=== PATIENT | female | born 1960 | race Caucasian/White ===

== ENCOUNTER 2021-01-05 08:09 | Outpatient (REF) | payer OTHER, SELFPAY ==
--- NOTE | ~2021-01-05 | MR_ITS ---
MRI CERVICAL, THORACIC, AND LUMBAR SPINE WITHOUT CONTRAST CLINICAL INFORMATION: Inflammatory spondylopathy. Radiculopathy. COMPARISON: Cervical spine MRI 07/07/2018. Lumbar spine radiographs 08/10/2018. TECHNIQUE: Multiplanar multisequence MR imaging of the cervical, thoracic, and lumbar spine obtained without contrast FINDINGS: CERVICAL SPINE MRI: Straightening the cervical lordosis. Vertebral body heights are maintained. There is moderate disc volume loss at C4-C5, C5-C6, and C6-C7. Modic type I endplate signal changes at C5-C6 and C6-C7. There is no additional bone marrow edema. There are no acute fractures. The craniocervical junction is unremarkable. Cervical arterial flow voids are maintained. There are no significant soft tissue findings. Intracranial compartment obscured by a saturation band. C2-C3: Slight annular disc bulge. Advanced left facet arthropathy and uncovertebral joint spurring result in mild left-sided foraminal encroachment. No right foraminal stenosis. C3-C4: Disc osteophyte and ligamentum flavum thickening result in mild to moderate central canal stenosis and flattening of the cord. Uncovertebral joint hypertrophy and hypertrophic facet arthropathy result in severe left-sided foraminal stenosis. Findings unchanged. C4-C5: Central disc protrusion and ligamentum flavum thickening result in worsening severe central canal stenosis and mass effect on the cervical cord. No definite cord signal changes. C5-C6: A broad-based right paracentral disc protrusion and ligamentum flavum thickening result in progressive severe central canal stenosis. Uncovertebral joint spurring and facet arthropathy result in similar severe bilateral foraminal stenosis. C6-C7: A broad-based disc protrusion and ligamentum flavum thickening result in worsening severe central canal stenosis. Uncovertebral joint spurring and facet arthropathy result in similar severe left greater than right foraminal stenosis. C7-T1: Slight annular disc bulge without central canal stenosis. Mild foraminal encroachment bilaterally. THORACIC SPINE MRI: Midthoracic kyphosis. Vertebral body heights are maintained. Disc volumes are preserved. No bone marrow edema. No acute fractures. There are multilevel endplate osteophytes and there is multilevel hypertrophic facet arthropathy. No definite cord signal changes with assessment limited by artifact. At T1-T2, a stable central disc protrusion flattens the ventral cord resulting in mild to moderate central canal stenosis. No foraminal stenosis. At T3-T4, T4-T5, and T5-T6 there are left paracentral disc protrusions that mildly indent the left ventral thecal sac without resulting in significant central canal stenosis. At T6-T7, a central disc protrusion and dorsal epidural lipomatosis result in moderate central canal stenosis and flattening of the thoracic cord. At T7-T8 and T8-T9 there are shallow paracentral disc protrusions that along with epidural lipomatosis result in mild narrowing of the central canal and flattening of the ventral cord. LUMBAR SPINE MRI: There are 5 nonrib-bearing lumbar-type vertebral bodies. There is grade 1 degenerative anterolisthesis of L4 on L5. Lumbar alignment is otherwise maintained. There is no bone marrow edema. There are no acute fractures. Vertebral body heights are maintained. There is moderate disc volume loss at L5-S1 and there is mild disc volume loss at L4-L5. Conus terminates at the L1 level. There is bilateral perinephric stranding. L1-L2: Small annular disc bulge and moderate bilateral facet arthropathy and ligamentum flavum thickening. Mild narrowing of the central canal and mild bilateral foraminal encroachment. L2-L3: Diffuse annular disc bulge and severe bilateral facet arthropathy and ligamentum flavum thickening. Mild central canal stenosis and mild bilateral foraminal encroachment. L3-L4: Diffuse annular disc bulge and severe bilateral facet arthropathy and ligamentum flavum thickening. Findings in concert result in mild to moderate central canal stenosis and mild right-sided foraminal encroachment. L4-L5: There is grade 1 degenerative anterolisthesis. There is severe bilateral facet arthropathy and ligamentum flavum thickening. These findings in concert result in severe central canal stenosis and moderate right-sided foraminal stenosis with mild mass effect on the exiting right L4 nerve root. L5-S1: Diffuse disc osteophyte complex with a superimposed broad-based right paracentral disc protrusion that compresses the traversing right S1 nerve root within the right subarticular zone. Severe bilateral facet arthropathy. Severe left and mild to moderate right foraminal stenosis. MR/MR thoracic spine wo con IMPRESSION: - Progressive advanced spondylitic changes throughout the cervical spine with spondylitic changes resulting in worsening now severe central canal stenosis at C4-C5, C5-C6, and C6-C7 with worsening mass effect on the cervical spinal cord at all of these levels. No definite cord signal changes however assessment is limited by artifact. Severe multilevel foraminal stenosis unchanged as discussed above. Modic type I endplate signal changes at C5-C6 and C6-C7. - At T1-T2, a central disc protrusion flattens the ventral cord resulting in mild to moderate central canal stenosis. At T6-T7, a central disc protrusion and dorsal epidural lipomatosis result in moderate central canal stenosis and flattening of the thoracic cord. At T7-T8 and T8-T9 there are shallow paracentral disc protrusions that along with epidural lipomatosis result in mild narrowing of the central canal and flattening of the ventral cord. There is a midthoracic kyphosis. - At L4-L5, grade 1 degenerative anterolisthesis and advanced spondylitic changes result in severe central canal stenosis and moderate right-sided foraminal stenosis with mild mass effect on the exiting right L4 nerve root. - At L5-S1, a right paracentral disc protrusion compresses the traversing right S1 nerve root within the right subarticular zone and multifactorial degenerative changes result in severe left foraminal stenosis with compression of the exiting left L5 nerve root.
== END 2021-01-05 08:10 | disposition home or self-care (01) ==
LOC: HO.MRI 08:09
PROVIDERS: PCP Internal Medicine; Visit Provider Physician Assistant
DX: M54.12 Radiculopathy, cervical region (principal); M46.92 Unspecified inflammatory spondylopathy, cervical region
CPT/HCPCS: 72141; 72146; 72148

== ENCOUNTER 2021-06-06 09:06 | Outpatient (REF) | payer OTHER, SELFPAY ==
[2021-06-07 08:51] LABS: BV Int Neg Control Negative (Negative); BV Int Pos Control Positive (Positive)
[2021-06-09 06:47] LABS: HPV mRNA E6/E7 rflx Not Detected (Not Detected)
== END 2021-06-06 09:07 | disposition home or self-care (01) ==
LOC: HO.LAB 09:06
PROVIDERS: PCP Internal Medicine; Visit Provider Advanced Practice Midwife
DX: Z01.411 Encounter for gynecological examination (general) (routine) with abnormal findings (principal); Z11.51 Encounter for screening for human papillomavirus (HPV); Z11.3 Encounter for screening for infections with a predominantly sexual mode of transmission; N89.8 Other specified noninflammatory disorders of vagina; E66.01 Morbid (severe) obesity due to excess calories; Z68.41 Body mass index [BMI] 40.0-44.9, adult; L85.8 Other specified epidermal thickening; L98.9 Disorder of the skin and subcutaneous tissue, unspecified; Z80.3 Family history of malignant neoplasm of breast
CPT/HCPCS: 87480; 87510; 87624; 87660; 88142

== ENCOUNTER 2021-06-18 11:52 | Outpatient (REF) | payer OTHER, SELFPAY ==
--- NOTE | ~2021-06-18 | MM_ITS ---
EXAMINATION: MM SCREENING DIGITAL BREAST TOMOSYNTHESIS, BILATERAL CLINICAL INFORMATION: Screening. Asymptomatic. The lifetime risk of breast cancer based on the Tyrer-Cuzick Model is 9%. COMPARISON: Mammography: 12/16/2019, 12/10/2018, 02/27/2017 TECHNIQUE: Digital breast tomosynthesis is performed in both the craniocaudal and mediolateral oblique views along with computer-aided detection (CAD). Synthesized 2D images are generated from the tomosynthesis. Additional bilateral CC views are provided. FINDINGS: The breasts are almost entirely fatty (ACR BI-RADS breast composition Category a). There are no significant masses, abnormal calcifications, or other abnormalities. Background stromal densities are stable. No developing density. The axilla and skin contours are unremarkable. MM/MM tomosynthesis screening BI IMPRESSION: No mammographic evidence of malignancy. ASSESSMENT: BI-RADS 1: Negative RECOMMENDATION: Routine annual mammography screening. This patient's information was entered into a reminder system with a target due date for their next mammogram.
== END 2021-06-18 11:53 | disposition home or self-care (01) ==
LOC: HO.MAMMO 11:52
PROVIDERS: Visit Provider Internal Medicine
DX: Z12.31 Encounter for screening mammogram for malignant neoplasm of breast (principal)
CPT/HCPCS: 77063; 77067

== ENCOUNTER 2021-06-20 09:51 | Outpatient (REF) | payer OTHER, SELFPAY | END 2021-06-20 09:52 | disposition home or self-care (01) | LOC: HO.LAB 09:51 | PROVIDERS: Visit Provider Advanced Practice Midwife | DX: L85.8 Other specified epidermal thickening (principal); N90.89 Other specified noninflammatory disorders of vulva and perineum; L72.3 Sebaceous cyst | CPT/HCPCS: 88305; 88312 ==

== ENCOUNTER → 2021-06-28 11:16 | Outpatient (BNVA) | payer OTHER, SELFPAY | PROVIDERS: Visit Provider Advanced Practice Midwife ==

== ENCOUNTER 2021-08-23 15:01 | Outpatient (REF) | payer OTHER, SELFPAY ==
--- NOTE | ~2021-08-23 | US_ITS ---
EXAMINATION: US PELVIC AND TRANSVAGINALS CLINICAL INFORMATION: Pelvic and perineal pain. COMPARISON: None TECHNIQUE: Ultrasound of the pelvis is performed using both transabdominal and transvaginal transducers along with Doppler. Transvaginal imaging is performed due to inadequate visualization transabdominally. FINDINGS: Technically limited due to body habitus. Uterus: The uterus is anteverted, anteflexed and measures 5.8 cm in length, 3.1 cm in AP, and 4.4 cm in transverse dimension. The double wall endometrial thickness is 0.4 mm. The uterus is smooth in contour and has normal myometrial echogenicity. No visible fibroid. Adnexa: Both ovaries are visualized. There is normal color-flow to the adnexa. There is no ovarian torsion. There is no pelvic ascites or fluid collection. Right ovary measures 1.6 x 1.1 x 1.1 and volume 1.01 mL. Previously it measured 2.2 x 1.2 x 1.9 cm. Left ovary measures 1.5 x 1.0 x 1.0 and volume 0.8 mL. There is an anechoic cyst measuring 0.79 x 0.67 x 0.8 cm. US/US pelvic and transvaginal IMPRESSION: Unremarkable uterus. Anechoic cyst left ovary.
== END 2021-08-23 15:02 | disposition home or self-care (01) ==
LOC: HO.US 15:01
PROVIDERS: Visit Provider Advanced Practice Midwife
DX: R10.2 Pelvic and perineal pain (principal)
CPT/HCPCS: 76830; 76856

== ENCOUNTER → 2021-09-11 12:06 | Outpatient (BNVA) | payer OTHER, SELFPAY | PROVIDERS: Visit Provider Advanced Practice Midwife ==

== ENCOUNTER → 2022-04-09 08:58 | Outpatient (REF) | payer OTHER, SELFPAY | LOC: HO.SL 08:58 | PROVIDERS: PCP Internal Medicine; Visit Provider Internal Medicine | DX: G47.33 Obstructive sleep apnea (adult) (pediatric) (principal); R40.0 Somnolence | CPT/HCPCS: 95806 ==

== ENCOUNTER 2022-06-07 11:15 | Outpatient (REF) | payer OTHER, SELFPAY ==
[2022-06-08 14:53] LABS: BV Int Neg Control Negative (Negative); BV Int Pos Control Positive (Positive)
[2022-06-10 21:12] LABS: HPV mRNA E6/E7 rflx Not Detected (Not Detected)
== END 2022-06-07 11:16 | disposition home or self-care (01) ==
LOC: HO.LAB 11:15
PROVIDERS: Visit Provider Advanced Practice Midwife
DX: Z01.419 Encounter for gynecological examination (general) (routine) without abnormal findings (principal); R10.2 Pelvic and perineal pain; Z11.51 Encounter for screening for human papillomavirus (HPV)
CPT/HCPCS: 87480; 87510; 87624; 87660; 88142

== ENCOUNTER 2022-07-10 11:29 | Outpatient (REF) | payer OTHER, SELFPAY ==
--- NOTE | ~2022-07-10 | MM_ITS ---
EXAMINATION: MM SCREENING DIGITAL BREAST TOMOSYNTHESIS, BILATERAL CLINICAL INFORMATION: Screening. Asymptomatic. The lifetime risk of breast cancer based on the Tyrer-Cuzick Model is 12%. COMPARISON: Mammography: 06/18/2021, 12/16/2019, 12/10/2018 TECHNIQUE: Digital breast tomosynthesis is performed in both the craniocaudal and mediolateral oblique views along with computer-aided detection (CAD). Synthesized 2D images are generated from the tomosynthesis. Additional right MLO view is provided. FINDINGS: The breasts are almost entirely fatty (ACR BI-RADS breast composition Category a). There are no significant masses, abnormal calcifications, or other abnormalities. Background stromal markings are normal. No developing density or architectural abnormality. The axilla are unremarkable. No significant changes. MM/MM tomosynthesis screening BI IMPRESSION: No mammographic evidence of malignancy. ASSESSMENT: BI-RADS 1: Negative RECOMMENDATION: Routine annual mammography screening. This patient's information was entered into a reminder system with a target due date for their next mammogram.
== END 2022-07-10 11:30 | disposition home or self-care (01) ==
LOC: HO.MAMMO 11:29
PROVIDERS: Visit Provider Internal Medicine
DX: Z12.31 Encounter for screening mammogram for malignant neoplasm of breast (principal)
CPT/HCPCS: 77063; 77067

== ENCOUNTER 2022-07-26 11:00 | Outpatient (REF) | payer OTHER, SELFPAY ==
--- NOTE | ~2022-07-26 | US_ITS ---
EXAMINATION: US PELVIS CLINICAL INFORMATION: Pain COMPARISON: Previous pelvic ultrasound, most recent July 2021 TECHNIQUE: Ultrasound of the pelvis is performed using both transabdominal and transvaginal transducers along with Doppler. Transvaginal imaging is performed due to inadequate visualization transabdominally. FINDINGS: The uterus is anteverted and measures 4.4 x 2.6 x 3.5 cm. No focal uterine lesion is seen. Endometrial thickness is normal measuring 0.4 cm. There is trace fluid seen in the endometrial cavity. The right ovary is normal-appearing and measures 1.5 x 1.4 x 1.2 cm. Left ovary measures 2.1 x 1.5 x 1.2 cm. There is a 0.9 x 0.7 x 0.9 cm simple left ovarian cyst. This is similar to previous exams. There is no fluid in the pelvis. US/US pelvic and transvaginal IMPRESSION: Normal-appearing uterus and right ovary. 9 x 7 x 9 mm simple left ovarian cyst not appreciably changed from previous exam.
== END 2022-07-26 11:01 | disposition home or self-care (01) ==
LOC: HO.US 11:00
PROVIDERS: Visit Provider Advanced Practice Midwife
DX: R10.2 Pelvic and perineal pain (principal)
CPT/HCPCS: 76830; 76856

== ENCOUNTER → 2022-08-07 09:39 | Outpatient (BNVA) | payer OTHER, SELFPAY | PROVIDERS: PCP Internal Medicine; Visit Provider Advanced Practice Midwife | DX: Z71.2 Person consulting for explanation of examination or test findings (principal); N83.292 Other ovarian cyst, left side | CPT/HCPCS: 99212; Q3014 ==

== ENCOUNTER → 2022-09-09 10:08 | Outpatient (BNVA) | payer OTHER, SELFPAY | PROVIDERS: PCP Internal Medicine; Visit Provider Internal Medicine | DX: J45.909 Unspecified asthma, uncomplicated (principal); G47.33 Obstructive sleep apnea (adult) (pediatric); E66.01 Morbid (severe) obesity due to excess calories; Z68.41 Body mass index [BMI] 40.0-44.9, adult | CPT/HCPCS: 99202 ==

== ENCOUNTER 2022-09-13 14:03 | Outpatient (REF) | payer OTHER, SELFPAY ==
--- NOTE | 2022-09-13 15:27 | PFT_ITS ---
FLOWS: FEV1 65% of predicted at 1.53 L. FVC 56% of predicted at 1.72 L. FEV1 to FVC ratio of 0.89. No bronchodilator response except in small to medium airways. LUNG VOLUMES: Total lung capacity 67% of predicted at 3.20 L. Residual volume 69% of predicted at 1.32 L. Slow vital capacity 65% of predicted at 1.88 L. Expiratory reserve volume 6% of predicted at 0.05 L. Diffusion capacity is mildly decreased, diffusion capacity corrects to normal after adjustment for alveolar ventilation. IMPRESSION: Moderate restrictive ventilatory defect with positive bronchodilator response. Decreased expiratory reserve volume suggests extrathoracic restriction likely secondary to abdominal obesity. Tim Aponte MD AP/MODL / [id number]
== END 2022-09-13 14:04 | disposition home or self-care (01) ==
LOC: HO.RESP 14:03
PROVIDERS: Visit Provider Internal Medicine
DX: E66.01 Morbid (severe) obesity due to excess calories (principal); J45.909 Unspecified asthma, uncomplicated; Z68.41 Body mass index [BMI] 40.0-44.9, adult
CPT/HCPCS: 94060; 94727; 94729

== ENCOUNTER → 2022-10-30 11:13 | Outpatient (BNVA) | payer OTHER, SELFPAY | PROVIDERS: PCP Internal Medicine; Visit Provider Internal Medicine | DX: G47.33 Obstructive sleep apnea (adult) (pediatric) (principal); J45.909 Unspecified asthma, uncomplicated; J98.4 Other disorders of lung; E66.01 Morbid (severe) obesity due to excess calories; Z68.41 Body mass index [BMI] 40.0-44.9, adult | CPT/HCPCS: 99212 ==

== ENCOUNTER → 2023-01-01 11:21 | Outpatient (BNVA) | payer OTHER, SELFPAY | PROVIDERS: PCP Internal Medicine; Visit Provider Internal Medicine | DX: G47.33 Obstructive sleep apnea (adult) (pediatric) (principal); J98.4 Other disorders of lung; E66.01 Morbid (severe) obesity due to excess calories; Z68.41 Body mass index [BMI] 40.0-44.9, adult | CPT/HCPCS: 99212 ==

== ENCOUNTER → 2023-02-26 11:01 | Outpatient (BNVA) | payer OTHER, SELFPAY | PROVIDERS: PCP Internal Medicine; Visit Provider Internal Medicine ==

== ENCOUNTER 2023-08-21 14:37 | Emergency (ER) | payer MEDICARE, MEDICAID, SELFPAY ==
[2023-08-21 15:48] VITALS: BP 166/88; PULSE 102; RESP 18; TEMP 37.1; O2SAT 96; BMI 45.7
--- NOTE | 2023-08-21 15:51 | ECG_ITS ---
Test Reason : headache,nausea,vomitimg Blood Pressure : / mmHG Vent. Rate : 095 BPM Atrial Rate : 095 BPM P-R Int : 140 ms QRS Dur : 080 ms QT Int : 356 ms P-R-T Axes : 040 -08 047 degrees QTc Int : 447 ms Normal sinus rhythm Minimal voltage criteria for LVH, may be normal variant ( R in aVL ) Possible Lateral infarct , age undetermined Abnormal ECG When compared with ECG of 23-AUG-2019 13:24, Borderline criteria for Lateral infarct are now Present Referred By: Gama Hinton Electronically Signed By:PAM CHING
--- NOTE | 2023-08-21 15:52 | ED.GENADULT ---
HPI - General Adult General Chief complaint: Headache Stated complaint: headache/ elevated blood pressure Time Seen by Provider: 08/21/23 19:44 Source: patient, family, RN notes reviewed and old records reviewed Mode of arrival: ambulatory Limitations: no limitations History of Present Illness HPI narrative: 63-year-old female with past medical history significant for asthma, hypertension, obesity, migraine headaches presents for evaluation of headache and body aches. Patient woke up this morning with her symptoms. She states that she has had some nausea and vomiting as well. Has not had any tactile fevers. She reports that she has a history of migraines and took some Tylenol without any improvement in her symptoms Her brother apparently tested positive for COVID-19 recently who lives with her She states ?my blood pressure was really high which got me scared. ? Related Data Previous Rx's Medication Instructions Recorded lorazepam 0.5 mg tablet (Ativan) 0.5 mg PO BEDTIME PRN anxiety 30 01/15/22 days #14 tabs CPAP #1 ea 07/22/22 albuterol sulfate 90 mcg/actuation 1 inh inhalation QID PRN shortness 07/22/22 aerosol inhaler of breath or wheezing 30 days #6.7 grams docusate sodium 100 mg capsule 100 mg PO DAILY 90 days #90 caps 07/22/22 (Colace) cholecalciferol (vitamin D3) 25 25 mcg PO DAILY 90 days #90 caps 10/12/22 mcg (1,000 unit) capsule amlodipine 5 mg tablet 5 mg PO DAILY 90 days #90 tabs 04/13/23 ikcfobbxej-jnervmozqelyv-paujlnqb 1 tab PO BID PRN pain 30 days #30 04/25/23 50 mg-325 mg-40 mg tablet tabs cyclobenzaprine 10 mg tablet 10 mg PO BEDTIME PRN muscle spasm 04/25/23 90 days #90 tabs nirmatrelvir 300 mg (150 mg See Rx Instructions PO .COMPLEX 08/21/23 x2)-ritonavir 100 mg tablet,dose #30 ea pack (Paxlovid) Allergies Allergy/AdvReac Type Severity Reaction Status Date / Time acetaminophen [From Percocet] Allergy Intermediate HEART RACES Verified 08/21/23 20:35 epinephrine [Epinephrine] Allergy Intermediate CHEST Verified 08/21/23 20:35 PAIN/HEART RACES , palpitations morphine Allergy Intermediate migraine Verified 08/21/23 20:35 oxycodone [Percocet] Allergy Intermediate palpitation Verified 08/21/23 20:35 s aspirin [Aspirin] Allergy Mild STOMACH Verified 08/21/23 20:35 UPSET, abd pain ibuprofen [From Motrin] Allergy Mild STOMACH Verified 08/21/23 20:35 UPSET amoxicillin [Amoxicillin] AdvReac Mild STOMACH Verified 08/21/23 20:35 UPSET Review of Systems Constitutional: Constitutional: Reports body ache(s), Denies chills, Denies fever(s) and Reports headache(s) Eyes: Eyes: Denies blurry vision ENT: Reports headache(s) and Denies sore throat Cardiovascular: Cardiovascular: Denies chest pain and Denies dyspnea Respiratory: Respiratory: Denies cough and Denies dyspnea Gastrointestinal: Gastrointestinal: Denies abdominal pain, Reports nausea and Reports vomiting Musculoskeletal: Musculoskeletal: Reports back pain, Reports arthralgias and Denies joint swelling Integumentary/Breasts: Skin/Breast: Denies rash Neurologic: Reports headache(s) [facility] Past Medical History Medical History Anxiety Asthma Carpal tunnel syndrome Chronic fatigue Daytime sleepiness Elevated blood pressure reading Essential hypertension FH: breast cancer FH: ovarian cancer Fibromyalgia Head injury Headache Hx of abnormal cervical Pap smear Hypovitaminosis D Migraines Mild persistent asthma Morbid obesity with BMI of 40.0-44.9, adult Osteoarthritis Physical exam Restrictive lung disease Surgical History History of abdominoplasty History of adjustable gastric banding History of section History of removal of laparoscopic gastric banding device Family History Family History Father Acute CVA (cerebrovascular accident) Hypertension Mother Cancer of kidney Brother FH: testicular cancer Maternal Grandmother Breast cancer Paternal Grandmother Ovarian cancer Family/Other FH: mental illness Social History Social History Housing: Apartment Alcohol intake: former Patient Tobacco Use Status: Former Tobacco user Tobacco use type: Cigarette Smoked in Last 30 Days: No e-Cigarette/Vaping Use: Never Used Second Hand Smoke Exposure: No Use of substances other than those prescribed or required for medical reasons: No Advance Directives: No service: No Current occupational status: unemployed Sexual orientation: Straight/Heterosexual Gender identity: Female Cognitive needs: No Hearing needs: No Vision needs: Yes Physical Exam ED Vital Signs: Vital Signs - 24 hr 08/21/23 15:48 08/21/23 20:00 Temperature 98.8 F 97.7 F Pulse Rate 102 H 91 Respiratory Rate 18 14 Blood Pressure 166/88 H 156/73 H Pulse Oximetry 96 93 Oxygen Delivery Method Room Air Room Air BMI result Body Mass Index 45.7 Const General: healthy appearing, comfortable, no acute distress, alert and awake Nutritional Appearance: well nourished Orientation/consciousness: patient oriented x3 HENMT Head: Yes normocephalic and Yes atraumatic Eyes Eyelids: Yes eyelids normal Conjunctivae: conjunctivae normal Sclerae: sclerae normal Corneas: corneas normal Pupils: Equal, round and reactive pupils present EOM: EOMs intact bilaterally Neck Neck: Yes full ROM Resp Effort & Inspection: normal respiratory effort, able to speak in complete sentences and not labored Auscultation: clear to auscultation bilaterally Cardio Rate: regular rate Rhythm: regular rhythm GI Inspection: No distended Palpation (GI): Soft to palpation, not firm, nontender, no guarding and not rigid Auscultation: normoactive bowel sounds Skin General skin exam: elasticity normal Neuro General: patient oriented x3 Cranial nerves: Yes Equal, round and reactive pupils present and Yes Bilaterally intact EOM present Cognition (Neuro): normal cognition Extrem Other: Moving all extremities well without any obvious deformities Course Course Course Narrative: RmE: 63 yold female presents to the ED for headache since yesterday without any trauma. patient states vomitting and nuasea also. patient states her brother living with her is positive for covid. SARS, EKG, and labs ordered Medications Administered Discontinued Medications Generic Name Dose Route Start Last Admin Trade Name Freq PRN Reason Stop Dose Admin Acetaminophen/Butalbital/Caffeine 1 tab 08/21/23 19:53 08/21/23 20:50 Butalb/Acetamin/Caff 50/325/40 Tablet PO 08/21/23 19:54 1 tab ONCE ONE Administration Sodium Chloride 1,000 mls @ 999 mls/hr 08/21/23 20:00 08/21/23 20:38 Ns IV 08/21/23 21:00 999 mls/hr .Q1H1M CAROLYN Administration Ketorolac Tromethamine 30 mg 08/21/23 19:53 08/21/23 20:50 Ketorolac Tromethamine 30 Mg/Ml Vial IVPUSH 08/21/23 19:54 30 mg ONCE ONE Administration Ondansetron HCl 4 mg 08/21/23 19:53 08/21/23 20:38 Ondansetron Hcl 4 Mg/2 Ml Vial IVPUSH 08/21/23 19:54 4 mg ONCE ONE Administration Medical Decision Making Medical Decision Making [facility] Narrative: 63-year-old female presents for evaluation of headache, body aches. She tested positive for COVID-19. For labs without any concerning abnormalities. She has no neurologic deficits. No concerning findings to warrant CT imaging of the head. She has a history of headaches and her headache today is likely attributed to her COVID-19 diagnosis. Given the patient's obesity and history of asthma we will cover her with Paxil over the which will be sent to her pharmacy. She was given fluids, Toradol and Fioricet for her headache. Differential Diagnosis Differential Diagnoses: The differential diagnosis associated with the presentation includes COVID-19 Viral syndrome Acute headache Migraine headache Lab Data [facility] Lab Attestation statement: I reviewed the patient's lab results. No leukocytosis or anemia. No electrolyte abnormalities. Patient's glucose is elevated to 176 with no evidence of DKA 08/21/23 16:28 08/21/23 16:28 Labs: Lab Results 08/21/23 Range/Units 16:28 WBC 7.5 (4.8-10.8) X10*3/uL RBC 4.28 (4.20-5.50) X10*6/uL Hgb 12.4 (12.0-16.0) g/dl Hct 37.0 (37.0-47.0) % MCV 86.4 (80.0-98.0) fL MCH 29.0 (27.0-33.0) pg MCHC 33.5 (31.0-35.0) g/dl RDW 13.7 (11.0-16.0) % Plt Count 222 (160-400) X10*3/uL MPV 9.7 (9.4-12.3) fL Immature Gran % (Auto) 0.4 (0.0-0.4) % Neut % (Auto) 89.6 H (45-73) % Lymph % (Auto) 5.0 L (20-40) % [place] % (Auto) 4.6 (2-11) % Eos % (Auto) 0.0 (0-4) % Baso % (Auto) 0.4 (0-2) % Lymph # (Auto) 0.4 L (1.2-4.9) X10*3/uL [place] # (Auto) 0.3 (0.1-1.2) X10*3/uL Eos # (Auto) 0.0 (0.0-0.4) X10*3/uL Baso # (Auto) 0.0 (0.0-0.2) X10*3/uL Abs Immat Gran (auto) 0.03 (0.00-0.03) X10*3/uL Absolute Neuts (auto) 6.7 (2.0-8.3) x10*3/uL Absolute Nucleated RBC 0.000 (0.0-0.012) X10*3/uL Nucleated RBC % (auto) 0.0 (0.0-0.2) /100WBC Sodium 137 (135-145) mmol/L Potassium 3.8 (3.3-5.1) mmol/L Chloride 102 (96-108) mmol/L Carbon Dioxide 23 (22-29) mmol/L Anion Gap 16 (12-20) BUN 10 (9-16) mg/dL Creatinine 0.67 (0.5-1.4) mg/dL Estim Creat Clear Calc 97.1 Estimated GFR > 60 Random Glucose 176 H (60-115) mg/dL Calcium 9.4 (8.4-10.2) mg/dL Total Bilirubin 0.5 (0.0-1.0) mg/dL AST 18 (5-31) U/L ALT 14 (0-31) U/L Alkaline Phosphatase 88 (39-117) U/L Troponin I High Sens 3.1 (<3.5-17.0) ng/L Total Protein 7.9 (6.5-8.0) g/dL Albumin 4.2 (3.5-5.0) g/dL Influenza Type A (PCR) NEGATIVE (Negative) Influenza Type B (PCR) NEGATIVE (Negative) RSV RNA Qual (PCR) NEGATIVE (Negative) SARS-CoV-2 RNA (RT-PCR) POSITIVE A (Negative) Discharge Plan Discharge Clinical Impression: Acute headache, COVID-19 Patient Disposition: Home, Self-Care Instructions: COVID-19 (Coronavirus Disease 2019) (ED) Additional Instructions: You tested positive for COVID-19 This is likely the cause of your worsening headache Take Paxlovid as prescribed Return for new or worsening symptoms Prescriptions: New Paxlovid 300 mg (150 mg x 2)-100 mg tablets,dose pack See Rx Instructions .ROUTE .COMPLEX Qty: 30 0RF Rx Instructions: take TWO 150 mg tablets of nirmatrelvir with ONE 100 mg tablet of ritonavir twice daily for 5 days No Action cholecalciferol (vitamin D3) 25 mcg (1,000 unit) capsule 25 mcg PO DAILY 90 Days Qty: 90 3RF amlodipine 5 mg tablet 5 mg PO DAILY 90 Days Qty: 90 1RF mjitkksvhw-zasoegsbdrcoo-ujhr 50-325-40 mg tablet 1 tab PO BID PRN (Reason: pain) 30 Days Qty: 30 0RF cyclobenzaprine 10 mg tablet 10 mg PO BEDTIME PRN (Reason: muscle spasm) 90 Days Qty: 90 1RF lorazepam [Ativan] 0.5 mg tablet 0.5 mg PO BEDTIME PRN (Reason: anxiety) 30 Days Qty: 14 0RF (DME) CPAP Device See Rx Instructions .Route Qty: 1 0RF Rx Instructions: autoPAP mode 6-20 cmH2O docusate sodium [Colace] 100 mg capsule 100 mg PO DAILY 90 Days Qty: 90 0RF albuterol sulfate 90 mcg/actuation HFA aerosol inhaler 1 inh inhalation QID PRN (Reason: shortness of breath or wheezing) 30 Days Qty: 6.7 0RF Interventions: ED Discharge Assessment Last Done: 08/21/23 22:50 Discharge Date/Time: 08/21/23 22:50
[2023-08-21 16:32] LABS: MANUAL DIFF FLAG NO
[2023-08-21 16:33] LABS: Basophils Percent Auto 0.4 % (0-2); Hemoglobin 12.4 g/dl (12.0-16.0); Imm Gran Abs Auto 0.03 X10*3/uL (0.00-0.03); Imm Gran Pct Auto 0.4 % (0.0-0.4); Lymphocytes Absolute Auto 0.4 X10*3/uL (1.2-4.9); Mean Corpuscular HGB Conc 33.5 g/dl (31.0-35.0); Mean Corpuscular Volume 86.4 fL (80.0-98.0); Mean Platelet Volume 9.7 fL (9.4-12.3); Monocytes Absolute Auto 0.3 X10*3/uL (0.1-1.2); Monocytes Percent Auto 4.6 % (2-11); Neutrophils Absolute Auto 6.7 x10*3/uL (2.0-8.3); Neutrophils Percent Auto 89.6 % (45-73); Platelet Count 222 X10*3/uL (160-400); Red Blood Count 4.28 X10*6/uL (4.20-5.50); Red Cell Distribution Width 13.7 % (11.0-16.0); White Blood Count 7.5 X10*3/uL (4.8-10.8)
[2023-08-21 16:49] LABS: Alanine Aminotransferase 14 U/L (0-31); Albumin Level 4.2 g/dL (3.5-5.0); Alkaline Phosphatase 88 U/L (39-117); Anion Gap 16 (12-20); Aspartate Amino Transferase 18 U/L (5-31); Bilirubin Total 0.5 mg/dL (0.0-1.0); Blood Urea Nitrogen 10 mg/dL (9-16); Calcium 9.4 mg/dL (8.4-10.2); Carbon Dioxide 23 mmol/L (22-29); Chloride 102 mmol/L (96-108); Creatinine Clr Calc Pharmacy 97.1; Estimated Glomerular Filt Rate > 60; Glucose Random 176 mg/dL (60-115); Potassium 3.8 mmol/L (3.3-5.1); Sodium 137 mmol/L (135-145); Total Protein 7.9 g/dL (6.5-8.0)
[2023-08-21 16:55] LABS: Troponin-I High Sensitivity 3.1 ng/L (<3.5-17.0)
[2023-08-21 17:09] LABS: Influenza A PCR NEGATIVE (Negative); Influenza B PCR NEGATIVE (Negative); Resp Syncy Virus RNA Qual PCR NEGATIVE (Negative); SARS COV2 PCR INHOUSE POSITIVE (Negative)
[2023-08-21 20:00] VITALS: BP 156/73; PULSE 91; RESP 14; TEMP 36.5; O2SAT 93
[2023-08-21] MEDS: 0.9 % Sodium Chloride 1,000 ML 999 ML IV (20:38)
[2023-08-21] MEDS: ondansetron HCL 4 MG/2 ML VIAL IVPUSH (20:38)
[2023-08-21] MEDS: Ketorolac Tromethamine 30 MG/ML VIAL IVPUSH (20:50)
[2023-08-21] MEDS: Butalb/Acetamin/Caff 50/325/40 TABLET 1 TAB PO (20:50)
[2023-08-21 21:44] VITALS: BP 137/64; PULSE 79; RESP 14; TEMP 36.4; O2SAT 93
== END 2023-08-21 22:50 | disposition home or self-care (01) ==
PROVIDERS: Physician Assistant; Emergency Provider Emergency Medicine; PCP Internal Medicine
DX: U07.1 COVID-19 (principal); R51.9 Headache, unspecified; I10 Essential (primary) hypertension; E66.01 Morbid (severe) obesity due to excess calories; Z68.42 Body mass index [BMI] 45.0-49.9, adult; Z87.891 Personal history of nicotine dependence
CPT/HCPCS: 0241U; 80053; 84484; 85025; 93005; 96374; 96375; 99284; 99285; J1885; J2405

== ENCOUNTER 2023-10-02 13:51 | Outpatient (AMB) | payer MEDICARE, MEDICAID, SELFPAY ==
--- NOTE | 2023-10-02 13:57 | MHC.OFFVIS ---
Intake Vital Signs 10/02/23 13:59 Height 5 ft 0.5 in Weight 238 lb BMI 45.7 BP 120/80 Blood Pressure Location Lt brachial Position Sitting Pulse 105 H Pulse Source Pulse Oximeter Pulse Oximetry (%) 97 Oxygen Delivery Method Room Air Intake Visit Reasons: maki Intake Note: pt is here for follow up of MAKI and is doing okay but only has a problem with falling asleep before putting machine on and than puts c-pap on when she goes into the room. Tariff Inspector Required: No Allergies acetaminophen [From Percocet] Allergy (Intermediate, Verified 10/02/23 14:14) HEART RACES epinephrine [Epinephrine] Allergy (Intermediate, Verified 10/02/23 14:14) CHEST PAIN/HEART RACES , palpitations morphine Allergy (Intermediate, Verified 10/02/23 14:14) migraine oxycodone [Percocet] Allergy (Intermediate, Verified 10/02/23 14:14) palpitations aspirin [Aspirin] Allergy (Mild, Verified 10/02/23 14:14) STOMACH UPSET, abd pain ibuprofen [From Motrin] Allergy (Mild, Verified 10/02/23 14:14) STOMACH UPSET amoxicillin [Amoxicillin] Adverse Reaction (Mild, Verified 10/02/23 14:14) STOMACH UPSET Medication List - Last Reconciled 10/02/23 by Rachael Sepulveda MD albuterol sulfate 90 mcg/actuation 1 inh inhalation QID PRN 30 days amlodipine 5 mg PO DAILY 90 days [id number]-[id number]-ovlj 50-325-40 mg 1 tab PO BID PRN 30 days cholecalciferol (vitamin D3) 25 mcg PO DAILY 90 days CPAP autoPAP mode 6-20 cmH2O cyclobenzaprine 10 mg PO BEDTIME PRN 90 days docusate sodium (Colace) 100 mg PO DAILY PRN lorazepam (Ativan) 0.5 mg PO BEDTIME PRN 30 days Do you need a note to return to daycare/school/sports/work: No HPI maki HPI Details 63 years old female with morbid obesity, and known case, of obstructive sleep apnea comes for follow-up after 6 months She uses CPAP with a nasal mask and pressure setting of 6-20 cm. Has used 70/90 days, 77.8%. However she has been using only for 2-3 hours per night. She claims that she takes care of her elderly mother and father and she wakes up quite a few times to look after them. However when she does use the CPAP she feels better. She does have intention to use it more regularly and for longer periods. Breathing has been okay and she has not needed to use any albuterol inhaler. [facility] Medical History Restrictive lung disease Asthma Anxiety Osteoarthritis Carpal tunnel syndrome Headache Mild persistent asthma Chronic fatigue Physical exam Daytime sleepiness Hx of abnormal cervical Pap smear Essential hypertension FH: ovarian cancer FH: breast cancer Morbid obesity with BMI of 40.0-44.9, adult Elevated blood pressure reading Head injury Migraines Hypovitaminosis D Fibromyalgia Surgical History History of removal of laparoscopic gastric banding device History of abdominoplasty History of adjustable gastric banding History of section Family History Father Acute CVA (cerebrovascular accident) Hypertension Mother Cancer of kidney Brother FH: testicular cancer Maternal Grandmother Breast cancer Paternal Grandmother Ovarian cancer Family/Other FH: mental illness Social History Housing: Apartment Alcohol intake: former Patient Tobacco Use Status: Former Tobacco user Tobacco use type: Cigarette e-Cigarette/Vaping Use: Never Used Second Hand Smoke Exposure: No service: No Current occupational status: unemployed Sexual orientation: Straight/Heterosexual Gender identity: Female Cognitive needs: No Hearing needs: No Vision needs: Yes Review of Systems Const All systems reviewed & are unremarkable except as noted in HPI and below Eyes Reports no additional complaints ENT Reports no additional complaints Card Denies chest pain, Denies irregular heart rhythm and Reports dyspnea on exertion (Mild) Resp Reports as per HPI and Reports dyspnea on exertion (Mild) GI Reports no additional complaints Reports no additional complaints Musc Reports back pain (Mild chronic) Skin/Breast Reports system reviewed and no additional complaints, except as documented Neuro Reports no additional complaints Psych Reports no additional complaints Endo Reports no additional complaints Physical Exam Vital Signs: Last Vital Signs Pulse 105 H 10/02/23 13:59 BP 120/80 10/02/23 13:59 Pulse Ox 97 10/02/23 13:59 Oxygen Delivery Method Room Air 10/02/23 13:59 BMI result Body Mass Index 45.7 Const Other: Grossly obese with BMI 45.2 General: comfortable, no acute distress, alert and awake Orientation/consciousness: patient oriented x3 HEENT Other: Oropharynx is narrow , Mallampati class 4 Head: Yes normal to inspection General nose exam: No nasal polyps present and No nasal discharge present Face and sinus: Yes sinuses nontender Mouth: oropharynx normal Throat: Yes posterior oropharynx normal Eyes General: appearance normal, both eyes and all related structures Neck Neck: Yes normal visual inspection, Yes no lymphadenopathy, Yes trachea midline, Yes no JVD and Yes other (Neck circumference 16 in) Thyroid: Thyroid normal Chest Chest palpation & inspection: normal inspection of the chest, normal palpation of entire chest wall and no tenderness Resp Other: Percussion note is resonant, breath sounds slightly decreased over the basilar areas. But no wheezes or rhonchi are heard. Cardio Palpation: normal PMI Rate: regular rate Rhythm: regular rhythm Heart sounds: no gallops and no murmurs Peripheral pulses: Peripheral pulses 2+ throughout GI Palpation (GI): Soft to palpation, Tenderness to palpation present (GI), No hepatosplenomegaly present and Palpable mass present Auscultation: normal bowel sounds Back/Spine/Pelvis Thoracic/Lumbar Spine: thoracic and lumbar spine normal to inspection and thoraco-lumbar ROM limited Skin General skin exam: no rashes or lesions noted Neuro General: patient oriented x3 and no focal motor deficits Cranial nerves: Yes CN's II-XII intact bilaterally Extrem General: Yes normal to inspection, Yes no clubbing, cyanosis or edema and Yes no calf tenderness Psych Appearance: grossly normal and well kempt Speech and movement: Normal speech and movement present Results Reviewed Results Reviewed: Compliance report for the last 30 nights reviewed. She used 70/90 nights, 78%. Average use per night 2 hours 51 minutes. No significant air leak is noted. Residual AHI 4.1 Assessment & Plan Assessment & Plan (1) Morbid obesity with BMI of 40.0-44.9, adult: Comment: PATIENT IS AWARE OF THIS ISSUE, DISCUSSED ABOUT REDUCTION IN THE CALORIES INTAKE AND EXERCISE. SHE IS ENCOURAGED TO JOIN WEIGHT MANAGEMENT PROGRAM AGAIN. SHE SAY IS SHE CANNOT BECAUSE SHE HAS TO STAY HOME TO LOOK AFTER HER ELDERLY PARENTS. Code(s): E66.01 - Morbid (severe) obesity due to excess calories; Z68.41 - Body mass index [BMI] 40.0-44.9, adult (2) MAKI (obstructive sleep apnea): Comment: PATIENT IS USING CPAP REGULARLY BUT MISSES ON SOME NIGHTS. HER USAGE PER NIGHT IS BETWEEN 2-3 HOURS ONLY. SHE STATES THAT SHE HAS TO WAKE UP TO TAKE CARE OF HER PARENTS, AND CANNOT KEEP THE CPAP ON FOR LONGER PERIODS. I DISCUSSED WITH HER AND ADVISED THAT SHE SHOULD USE THE CPAP WHEN SHE TAKES BRIEF NAPS DURING THE DAYTIME WELL. AT ANY RATE IT IS VERY IMPORTANT FOR HER TO USE CPAP REGULARLY AT LEAST FOR 4-5 HOURS PER NIGHT. Code(s): G47.33 - Obstructive sleep apnea (adult) (pediatric) (3) Restrictive lung disease: Comment: PER PULMONARY FUNCTION TEST SHE HAS MODERATELY SEVERE RESTRICTIVE PULMONARY DISORDER WHICH WILL BE CONSISTENT WITH HER MORBID OBESITY. PATIENT IS EXPLAINED IN DETAIL. ADVISED TO LOSE WEIGHT. ALSO CONTINUE TO USE INCENTIVE SPIROMETRY FOR DEEP BREATHING EXERCISES AT LEAST 3 TIMES A DAY. Code(s): J98.4 - Other disorders of lung (4) Asthma: Comment: PATIENT DESCRIBES GETTING SHORT OF BREATH ON EXERTION AND SOMETIMES EVEN AT REST WHEN SHE IS EXPOSED TO COLD AIR. SHE MAY HAVE MILD DEGREE OF BRONCHIAL ASTHMA., MAY USE ALBUTEROL HFA 2 PUFFS Q 4-6 HOURS BUT ONLY P.R.N. IF SHE HAS WHEEZING. Code(s): J45.909 - Unspecified asthma, uncomplicated Medications: Changed From docusate sodium (Colace) 100 mg PO DAILY 90 days 90 caps 0RF M19.90 - Unspecified osteoarthritis, unspecified site To docusate sodium (Colace) 100 mg PO DAILY PRN M19.90 - Unspecified osteoarthritis, unspecified site Coding Level of Care Code Est Pt Level 3 (10461) Diagnoses Morbid obesity with BMI of 40.0-44.9, adult E66.01; Z68.41 MAKI (obstructive sleep apnea) G47.33 Restrictive lung disease J98.4 Asthma J45.909
[2023-10-02 13:59] VITALS: BP 120/80; PULSE 105; O2SAT 97; BMI 45.7
== END 2023-10-02 14:24 | disposition home or self-care (01) ==
PROVIDERS: PCP Internal Medicine; Visit Provider Internal Medicine
DX: E66.01 Morbid (severe) obesity due to excess calories (principal); Z68.41 Body mass index [BMI] 40.0-44.9, adult; G47.33 Obstructive sleep apnea (adult) (pediatric); J98.4 Other disorders of lung; J45.909 Unspecified asthma, uncomplicated
CPT/HCPCS: 99213

== ENCOUNTER 2023-10-02 15:00 | Outpatient (REF) | payer MEDICARE, MEDICAID, SELFPAY ==
--- NOTE | ~2023-10-02 | MM_ITS ---
EXAMINATION: MM SCREENING DIGITAL BREAST TOMOSYNTHESIS, BILATERAL CLINICAL INFORMATION: Screening. Asymptomatic. COMPARISON: Mammography: This study is compared with prior exams dating back to 2017. TECHNIQUE: Digital breast tomosynthesis is performed in both the craniocaudal and mediolateral oblique views along with computer-aided detection (CAD). Synthesized 2D images are generated from the tomosynthesis. FINDINGS: The breasts are almost entirely fatty (ACR BI-RADS breast composition Category a). There are no significant masses, abnormal calcifications, or other abnormalities. MM/MM tomosynthesis screening BI IMPRESSION: No mammographic evidence of malignancy. ASSESSMENT: BI-RADS BI-RADS 1 - Negative RECOMMENDATION: Routine annual mammography screening. 1 year F/U This examination should not preclude the clinical evaluation of a suspicious palpable abnormality. This patient's information was entered into a reminder system with a target due date for their next mammogram.
== END 2023-10-02 15:01 | disposition home or self-care (01) ==
LOC: HO.MAMMO 15:00
PROVIDERS: PCP Internal Medicine; Visit Provider Internal Medicine
DX: Z12.31 Encounter for screening mammogram for malignant neoplasm of breast (principal)
CPT/HCPCS: 77063; 77067; 99212

== ENCOUNTER → 2023-10-02 15:00 | Outpatient (BNV) | payer MEDICARE, MEDICAID, SELFPAY | PROVIDERS: PCP Internal Medicine; Visit Provider Radiology Diagnostic Radiology | DX: Z12.31 Encounter for screening mammogram for malignant neoplasm of breast (principal) | CPT/HCPCS: 77063; 77067 ==

== ENCOUNTER 2024-01-21 09:30 | Outpatient (AMB) | payer MEDICARE, MEDICAID, SELFPAY ==
--- NOTE | 2024-01-21 09:32 | MHC.OFFVIS ---
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 Identity Access Management Architect: Identity Access Management Architect Present (Domenica) Allergies acetaminophen [From Percocet] Allergy (Intermediate, Verified 01/21/24 09:33) HEART RACES epinephrine [Epinephrine] Allergy (Intermediate, Verified 01/21/24 09:33) CHEST PAIN/HEART RACES , palpitations morphine Allergy (Intermediate, Verified 01/21/24 09:33) migraine oxycodone [Percocet] Allergy (Intermediate, Verified 01/21/24 09:33) palpitations aspirin [Aspirin] Allergy (Mild, Verified 01/21/24 09:33) STOMACH UPSET, abd pain ibuprofen [From Motrin] Allergy (Mild, Verified 01/21/24 09:33) STOMACH UPSET amoxicillin [Amoxicillin] Adverse Reaction (Mild, Verified 01/21/24 09:33) STOMACH UPSET HPI HPI Comments History of Present Illness Details 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 She is doing well with no concerns. Attempting to eat a healthy diet, taking Vit D. Currently sexually active. Denies any vaginal dryness or irritation. STI testing offered; she accepts. Last pap smear; 2021, negative, history of ASCUS. History of leukoplakia and vulvar lichen sclerosus, seen in [facility] w/Dr. Gonzalez-has referral to [facility] for JOSE MIGUEL. Has appt. for 8 mapping biopsies in January. Last mammogram; UTD. Colonoscopy is not UTD. Denies any family history of ovarian or colon cancer. FH breast cancer. [facility] Medical History Restrictive lung disease Asthma Anxiety Osteoarthritis Carpal tunnel syndrome Headache Mild persistent asthma Chronic fatigue Physical exam Daytime sleepiness Hx of abnormal cervical Pap smear Essential hypertension FH: ovarian cancer FH: breast cancer Morbid obesity with BMI of 40.0-44.9, adult Elevated blood pressure reading Head injury Migraines Hypovitaminosis D Fibromyalgia Surgical History History of removal of laparoscopic gastric banding device History of abdominoplasty History of adjustable gastric banding History of section Family History Father Acute CVA (cerebrovascular accident) Hypertension Mother Cancer of kidney Brother FH: testicular cancer Maternal Grandmother Breast cancer Paternal Grandmother Ovarian cancer Family/Other FH: mental illness Social History Housing: Apartment Alcohol intake: former Patient Tobacco Use Status: Former Tobacco user Tobacco use type: Cigarette e-Cigarette/Vaping Use: Never Used Second Hand Smoke Exposure: No service: No Current occupational status: unemployed Sexual orientation: Straight/Heterosexual Gender identity: Female Cognitive needs: No Hearing needs: No Vision needs: Yes Female Reproductive History Menstrual Total pregnancies: 2 Full term: 1 Number of Living Children: 1 Date of last pap smear: 06/07/22 (neg pap and hpv) History of abnormal pap smear: Yes (10/06 ascus 05/10 ascus 06/13 ascus) Date of Mammogram: 10/02/23 (Birad 1) Review of Systems Const All systems reviewed & are unremarkable except as noted in HPI and below Reports as per HPI Eyes Reports no additional complaints ENT Reports no additional complaints Card Reports no additional complaints Resp Reports no additional complaints GI Reports as per HPI and Reports no additional complaints Reports as per HPI Musc Reports no additional complaints Skin/Breast Reports as per HPI Neuro Reports no additional complaints Psych Reports no additional complaints Endo Reports no additional complaints Harry/Lymph Reports no additional complaints Aller/Immun Reports no additional complaints Physical Exam Vital Signs: Last Vital Signs BP 130/86 01/21/24 09:33 BMI result Body Mass Index 45.7 Const General: cooperative, healthy appearing, no acute distress, well developed and alert Orientation/consciousness: patient oriented x3 HEENT Head: Yes normal to inspection Eyes General: appearance normal, both eyes and all related structures Neck Neck: Yes normal visual inspection Thyroid: Thyroid normal Chest Chest palpation & inspection: normal inspection of the chest and other (no puckering, dimpling, peau de orange, retraction, discharge, masses) Breast/axilla inspection: normal inspection of the breasts Breast/axilla palpation: normal palpation of the breasts Resp Effort & Inspection: normal respiratory effort GI Inspection: Yes normal to inspection, Yes obesity and Yes scar Palpation (GI): Soft to palpation Rectal Exam - Female: deferred Other: Vulvar surgical scars General: Yes bladder normal to palpation External Female Exam: normal external appearance and normal appearance of the urethra Speculum Exam - Vagina: normal appearance of the vagina, normal palpation, normal vaginal discharge and vagina atrophic Speculum Exam - Cervix: normal appearance of the cervix, normal palpation and Other cervical findings present (Bled very slightly with Pap) Bimanual exam- vagina & uterus: normal bimanual exam, normal palpation, uterine size normal, bladder normal to palpation, normal palpation and non-tender Bimanual Exam- Adnexa, other: no masses Skin General skin exam: no rashes or lesions noted Rashes: no rashes Neuro General: patient oriented x3 Cognition (Neuro): normal cognition Extrem General: Yes normal to inspection Psych Attitude: cooperative Thought process: Normal thought process present Assessment & Plan Assessment & Plan (1) Encounter for well woman exam with routine gynecological exam: Code(s): Z01.419 - Encounter for gynecological examination (general) (routine) without abnormal findings Plan Discussed: Current recommendations for pap smears per ASCCP guidelines. Breast awareness, periodic self breast exams and yearly mammogram. Maintain a healthy lifestyle, well balanced diet including Calcium 1,200 mg and Vitamin D 600 IU daily, and routine exercise. Advised to follow up with her primary care to revisit the vitamin-D level for the accurate amount of supplementation she is needing. Contact the office with any postmenopausal bleeding. Patient verbalizes understanding and agrees to the plan of care. She was given opportunity to ask questions and all questions were answered to the best of my ability. 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 This note is constructed using voice recognition software. While every effort has been made to ensure accuracy, caseworker protective services errors may have been included. Orders: Orders Pap Smear Today Z01.419 - Encounter for gynecological examination (general) (routine) without abnormal findings Coding Level of Care Code Est Pt Prev Care 40-64y(92478) Diagnoses Encounter for well woman exam with routine gynecological exam Z01.419
[2024-01-21 09:33] VITALS: BP 130/86; BMI 45.7
== END 2024-01-21 10:27 | disposition home or self-care (01) ==
LOC: HO.HWS 09:30
PROVIDERS: PCP Internal Medicine; Referring Provider Internal Medicine; Visit Provider Advanced Practice Midwife
DX: Z01.419 Encounter for gynecological examination (general) (routine) without abnormal findings (principal)
CPT/HCPCS: G0101; Q0091

== ENCOUNTER 2024-01-21 09:30 | Outpatient (REF) | payer MEDICARE, MEDICAID, SELFPAY ==
[2024-01-29 03:24] LABS: HPV mRNA E6/E7 rflx Not Detected (Not Detected)
== END 2024-01-21 09:31 | disposition home or self-care (01) ==
LOC: HO.LNP 09:30
PROVIDERS: PCP Internal Medicine; Visit Provider Advanced Practice Midwife
DX: Z01.419 Encounter for gynecological examination (general) (routine) without abnormal findings (principal)
CPT/HCPCS: 87624; 88142; G0101

== ENCOUNTER 2024-02-12 08:44 | Outpatient (AMB) | payer MEDICARE, MEDICAID, SELFPAY ==
[2024-02-12 08:44] VITALS: BP 136/80; BMI 44.9
--- NOTE | 2024-02-12 08:44 | MHC.PC.OV ---
Vital Signs 02/12/24 08:44 Height 5 ft 0.5 in Weight 234 lb BMI 44.9 BP 136/80 Blood Pressure Location Lt brachial Position Sitting Intake Visit Reasons: physical exam Intake Note: Patient here for a physical exam Vessel Scrapper Required: No Accompanied by: Self / Same As Patient Allergies acetaminophen [From Percocet] Allergy (Intermediate, Verified 02/12/24 09:01) HEART RACES epinephrine [Epinephrine] Allergy (Intermediate, Verified 02/12/24 09:01) CHEST PAIN/HEART RACES , palpitations morphine Allergy (Intermediate, Verified 02/12/24 09:01) migraine oxycodone [Percocet] Allergy (Intermediate, Verified 02/12/24 09:01) palpitations aspirin [Aspirin] Allergy (Mild, Verified 02/12/24 09:01) STOMACH UPSET, abd pain ibuprofen [From Motrin] Allergy (Mild, Verified 02/12/24 09:01) STOMACH UPSET amoxicillin [Amoxicillin] Adverse Reaction (Mild, Verified 02/12/24 09:01) STOMACH UPSET Medication List - Last Reconciled 02/12/24 by Kathryn Suárez MD albuterol sulfate 90 mcg/actuation 1 inh inhalation QID PRN 30 days amlodipine 5 mg PO DAILY 90 days prfdvqgshy-upldfdukcmlpm-uvmg 50-325-40 mg 1 tab PO BID PRN 30 days cholecalciferol (vitamin D3) 25 mcg PO DAILY 90 days CPAP autoPAP mode 6-20 cmH2O cyclobenzaprine 10 mg PO BEDTIME PRN 90 days docusate sodium (Colace) 100 mg PO DAILY PRN lorazepam (Ativan) 0.5 mg PO BEDTIME PRN 30 days Tobacco use date assessed: 02/12/24 Dental Screening Dental Screen Date: 02/12/24 Did you have a dental visit in the last 12 months?: Yes Did you have a dental problem in the last 6 months where you did not have access to dental care?: No Was dental information given to patient?: Patient has dentist HPI HPI Comments History of Present Illness Details This is a 64-year-old female with morbid obesity and cervical spondylitis with radiculitis that comes for her physical exam. She declines weight management and every time she sees me she said she knows what to do about her weight. She is willing to go to weight management. Cervical spondylitis with radiculitis is somewhat stable with Flexeril as needed. Last mammogram was 2022. As per patient Pap smears are up-to-date. Has not had a colonoscopy and will prefer Cologuard. No family history of colon cancer. No chest pain or shortness of breath. ON LICENSE OF [facility] Medical History (Updated 02/12/24 @ 09:12 by Kathryn Suárez MD) Restrictive lung disease Asthma Anxiety Osteoarthritis Carpal tunnel syndrome Headache Mild persistent asthma Chronic fatigue Physical exam Daytime sleepiness Hx of abnormal cervical Pap smear Essential hypertension FH: ovarian cancer FH: breast cancer Morbid obesity with BMI of 40.0-44.9, adult Elevated blood pressure reading Head injury Migraines Hypovitaminosis D Fibromyalgia Surgical History History of removal of laparoscopic gastric banding device History of abdominoplasty History of adjustable gastric banding History of section Family History Father Acute CVA (cerebrovascular accident) Hypertension Mother Cancer of kidney Brother FH: testicular cancer Maternal Grandmother Breast cancer Paternal Grandmother Ovarian cancer Family/Other FH: mental illness Social History Housing: Apartment Alcohol intake: former Patient Tobacco Use Status: Former Tobacco user Tobacco use type: Cigarette e-Cigarette/Vaping Use: Never Used Second Hand Smoke Exposure: No service: No Current occupational status: unemployed Sexual orientation: Straight/Heterosexual Gender identity: Female Cognitive needs: No Hearing needs: No Vision needs: Yes Questionnaire PHQ-9 Over the last 2 weeks, how often have you been bothered by any of the following problems? 1. Little interest or pleasure in doing things: not at all 2. Feeling down, depressed, or hopeless: not at all 3. Trouble falling or staying asleep, or sleeping too much: not at all 4. Feeling tired or having little energy: not at all 5. Poor appetite or overeating: not at all 6. Feeling bad about yourself - or that you are a failure or have let yourself or your family down: not at all 7. Trouble concentrating on things, such as reading the newspaper or watching television: not at all 8. Moving or speaking so slowly that other people could have noticed. Or the opposite - being so fidgety or restless that you have been moving around a lot more than usual: not at all 9. Thoughts that you would be better off or of hurting yourself in some way: not at all Total score: 0 Depression Screening Interpretation: Negative Depression Screening Done: Yes 61076 - PHQ-9 Billing: Yes Source: Developed by Drs. Juvenal Bass, Sarah Esqueda, Rohit Pinto and colleagues, with an educational sergey from [employer]. Thrive Questionnaire Date Thrive assessed: 02/12/24 I am a: Patient What is your living situation today?: I have a steady place to live Within the past 12 months, did the food you bought not last and you didn't have the money to get more?: Never true Within the past 12 months, did you worry whether your food would run out before you got money to buy more?: Never true Do you have trouble paying for medicines?: No Do you have trouble getting transportation to medical appointments?: No Do you have trouble paying your heating and electricity bill?: No Do you have trouble taking care of your child, family member or friend?: No Do you have trouble with day-to-day activities such as bathing, preparing meals, shopping, managing finances, etc.?: No Are you currently unemployed and looking for a job?: No Are you interested in more education?: No Please select the resources that you would like help with: None Currently or been in a relationship where the following occur: no concerns reported THRIVE Score: 0 AUDIT C Alcohol Use Questionnaire (AUDIT-C) 1. How often do you have a drink containing alcohol?: Never Total Score: 0 ALEX-7 AMB Questionnaire ALEX-7 Date ALEX - 7 assessed: 02/12/24 Feeling nervous, anxious, or on edge: 1 = Several days Not being able to stop or control worryin = Not at all Worrying too much about different things: 0 = Not at all Trouble relaxin = Not at all Being so restless that it is hard to sit still: 0 = Not at all Becoming easily annoyed or irritable: 0 = Not at all Feeling afraid as if something awful might happen: 0 = Not at all Total ALEX-7 score (0-4 normal; 5-9 mild; 10-14 moderate; 15-21 severe): 1 Source: Developed by Drs. Juvenal Bass, Sarah Esqueda, Rohit Pinto and colleagues, with an educational sergey from [employer]. ALEX-7 Assessment Billing ALEX-7 Assessment Tool: ALEX-7 Assessment 12929 Review of Systems Const All systems reviewed & are unremarkable except as noted in HPI and below Eyes Reports no additional complaints, Denies change in vision and Denies other visual disturbances Card Denies chest pain at rest, Denies chest pain with activity, Denies edema, Denies irregular heart rhythm, Denies claudication, Denies dyspnea, Denies dyspnea on exertion, Denies orthopnea, Denies paroxysmal nocturnal dyspnea and Denies slow heart rate Resp Denies cough, Denies dyspnea and Denies dyspnea on exertion GI Denies abdominal pain, Denies change in bowel habits, Denies excessive flatus, Denies nausea and Denies vomiting Denies urinary incontinence, Denies urinary hesitancy and Denies urinary urgency Musc Denies abnormal gait, Denies atrophy, Denies deformity and Denies limited range of motion Skin/Breast Denies bleeding lesions, Denies changing lesions and Denies rash Neuro Denies abnormal gait, Denies behavioral changes, Denies confusion and Denies lack of coordination Psych Denies behavioral changes and Denies confusion Physical exam (Primary Care) Vital Signs: Last Vital Signs BP 136/80 02/12/24 08:44 BMI result Body Mass Index 44.9 Tobacco/Smoking Status: Tobacco use Status Tobacco use date assessed 02/12/24 02/12/24 08:51 Patient Tobacco Use Status Former Tobacco user 02/12/24 08:51 Tobacco use type Cigarette 02/12/24 08:51 e-Cigarette/Vaping Use Never Used 02/12/24 08:51 PHQ-9: PHQ-9 Score PHQ-9: Total score 0 02/12/24 09:06 Depression Screening Interpretation: Negative Thrive Assessment: Date of Thrive Assessment Date Thrive assessed 02/12/24 02/12/24 08:51 Currently or been in a relationship where the following occur: no concerns reported Const General: No confusion Orientation/consciousness: patient oriented x3 and No confusion HENMT Head: Yes normal to inspection, Yes normocephalic and Yes atraumatic Ears: external ears normal Eyes General: appearance normal, both eyes and all related structures Eyelids: Yes eyelids normal Conjunctivae: conjunctivae normal Neck Neck: Yes normal visual inspection and Yes supple Resp Effort & Inspection: normal respiratory effort Auscultation: clear to auscultation bilaterally Cardio Jugular venous distension: no JVD Rate: regular rate Rhythm: regular rhythm Heart sounds: S1 normal heart sound present and S2 normal heart sound present GI Inspection: Yes normal to inspection Palpation (GI): Soft to palpation and nontender Auscultation: normal bowel sounds Skin General skin exam: no rashes or lesions noted Neuro General: patient oriented x3, no focal motor deficits and No confusion Extrem General: Yes full ROM Psych Appearance: grossly normal Assessment and Plan Assessment & Plan (1) Physical exam: Code(s): Z00.00 - Encounter for general adult medical examination without abnormal findings Plan: Repeat in a year. (2) Cervical spondylitis with radiculitis: Code(s): M46.92 - Unspecified inflammatory spondylopathy, cervical region; M54.12 - Radiculopathy, cervical region Plan: Continue Flexeril as needed. Consider in pain management but has to do her research as per patient about providers. (3) Morbid obesity with BMI of 40.0-44.9, adult: Comment: PATIENT IS AWARE OF THIS ISSUE, DISCUSSED ABOUT REDUCTION IN THE CALORIES INTAKE AND EXERCISE. SHE IS ENCOURAGED TO JOIN WEIGHT MANAGEMENT PROGRAM AGAIN. SHE SAY IS SHE CANNOT BECAUSE SHE HAS TO STAY HOME TO LOOK AFTER HER ELDERLY PARENTS. Code(s): E66.01 - Morbid (severe) obesity due to excess calories; Z68.41 - Body mass index [BMI] 40.0-44.9, adult Plan: Referred to weight management. BMI goal is less than 30. Orders: Orders Lipid Panel Today Z00.00 - Encounter for general adult medical examination without abnormal findings Comprehensive [place]. Panel Fast Today Z00.00 - Encounter for general adult medical examination without abnormal findings Vitamin D 25-OH Total Today E55.9 - Vitamin D deficiency, unspecified Complete Blood Count Auto Diff Today R53.82 - Chronic fatigue, unspecified Thyroid Stimulating Hormone Today R53.82 - Chronic fatigue, unspecified Vitamin B12 and Folate Today E53.8 - Deficiency of other specified B group vitamins Referrals Gastroenterology Referral Z12.11 - Encounter for screening for malignant neoplasm of colon Medical Weight Management Referral E66.01 - Morbid (severe) obesity due to excess calories Medications: Changed From docusate sodium (Colace) 100 mg PO DAILY PRN To docusate sodium (Colace) 100 mg PO DAILY 90 days PRN 90 caps 0RF constipation Refilled cholecalciferol (vitamin D3) 25 mcg PO DAILY 90 days 90 caps 3RF M19.90 - Unspecified osteoarthritis, unspecified site cyclobenzaprine 10 mg PO BEDTIME 90 days PRN 90 tabs 1RF muscle spasm odyzuswabh-wyjdrefevbxmw-qjcy 50-325-40 mg 1 tab PO BID 30 days PRN 30 tabs 0RF pain Coding Level of Care Code Est Pt Prev Care 40-64y(69747) Diagnoses Physical exam Z00.00 Cervical spondylitis with radiculitis M46.92; M54.12 Morbid obesity with BMI of 40.0-44.9, adult E66.01; Z68.41 Additional Codes ALEX-7 Assessment Billing - ALEX-7 Assessment Tool: ALEX-7 Assessment 10995 ([id number]) Time Spent (min) 36
== END 2024-02-12 09:19 | disposition home or self-care (01) ==
PROVIDERS: PCP Internal Medicine; Visit Provider Internal Medicine
DX: Z00.00 Encounter for general adult medical examination without abnormal findings (principal); M46.92 Unspecified inflammatory spondylopathy, cervical region; E66.01 Morbid (severe) obesity due to excess calories; Z68.41 Body mass index [BMI] 40.0-44.9, adult; M54.12 Radiculopathy, cervical region
CPT/HCPCS: 99396

== ENCOUNTER 2024-09-15 10:40 | Outpatient (AMB) | payer MEDICARE, MEDICAID, SELFPAY ==
[2024-09-15 10:43] VITALS: BP 142/70; PULSE 102; O2SAT 96; BMI 45.7
--- NOTE | 2024-09-15 10:43 | A.OFFVIS_ITS ---
Vital Signs 09/15/24 10:43 Height 5 ft 0.5 in Weight 238 lb BMI 45.7 BP 142/70 H Blood Pressure Location Lt brachial Position Sitting Pulse 102 H Pulse Source Pulse Oximeter Pulse Oximetry (%) 96 Oxygen Delivery Method Room Air Intake Visit Reasons: Obstructive sleep apnea Intake Note: pt is here for follow up of BING, she is struggling with a blood pressure issue, pcp is helping (increased amlodipine to 5 mg bid), and struggling with cpap, [employer] Required: No Allergies acetaminophen [From Percocet] Allergy (Intermediate, Verified 09/15/24 11:06) HEART RACES epinephrine [Epinephrine] Allergy (Intermediate, Verified 09/15/24 11:06) CHEST PAIN/HEART RACES , palpitations morphine Allergy (Intermediate, Verified 09/15/24 11:06) migraine oxycodone [Percocet] Allergy (Intermediate, Verified 09/15/24 11:06) palpitations aspirin [Aspirin] Allergy (Mild, Verified 09/15/24 11:06) STOMACH UPSET, abd pain ibuprofen [From Motrin] Allergy (Mild, Verified 09/15/24 11:06) STOMACH UPSET amoxicillin [Amoxicillin] Adverse Reaction (Mild, Verified 09/15/24 11:06) STOMACH UPSET Medication List - Last Reconciled 09/15/24 by Rachael Sepulveda MD albuterol sulfate 90 mcg/actuation 1 inh inhalation QID PRN 30 days amlodipine 5 mg PO BID 90 days lbzqrbofhz-uqdobyzsophkq-aisz 50-325-40 mg 1 tab PO BID PRN 30 days cholecalciferol (vitamin D3) 25 mcg PO DAILY 90 days CPAP autoPAP mode 6-20 cmH2O cyclobenzaprine 10 mg PO BEDTIME PRN 90 days docusate sodium (Colace) 100 mg PO DAILY PRN 90 days lorazepam (Ativan) 0.5 mg PO BEDTIME PRN 30 days Do you need a note to return to daycare/school/sports/work: No HPI HPI Obstructive sleep apnea: Details: 64 years old female with morbid obesity and sleep apnea comes for follow-up. Had a lengthy discussion. Claims that using the CPAP is raising her blood pressure during the night, and she wakes up with. Fast pulse and high blood pressure She does use more than 75% of the nights however her time of usage is no more than 2 hours to 3 hours per night. She remains tired and sleepy during the daytime. She describes lot of stress , related to her life issues, neck pain, back pain, anxiety. In the past she has had Ativan 0.5 mg to take at bedtime but now she is out of this medicine, would like to have another supply. Breathing is good and she uses albuterol only once in a while. Her weight remains high and she can not join any weight management program. [facility] Medical History Restrictive lung disease Asthma Anxiety Osteoarthritis Carpal tunnel syndrome Headache Mild persistent asthma Chronic fatigue Physical exam Daytime sleepiness Hx of abnormal cervical Pap smear Essential hypertension FH: ovarian cancer FH: breast cancer Morbid obesity with BMI of 40.0-44.9, adult Elevated blood pressure reading Head injury Migraines Hypovitaminosis D Fibromyalgia Surgical History History of removal of laparoscopic gastric banding device History of abdominoplasty History of adjustable gastric banding History of section Family History Father Acute CVA (cerebrovascular accident) Hypertension Mother Cancer of kidney Brother FH: testicular cancer Maternal Grandmother Breast cancer Paternal Grandmother Ovarian cancer Family/Other FH: mental illness Social History Housing: Apartment Alcohol intake: former Patient Tobacco Use Status: Former Tobacco user Tobacco use type: Cigarette e-Cigarette/Vaping Use: Never Used Second Hand Smoke Exposure: No service: No Current occupational status: unemployed Sexual orientation: Straight/Heterosexual Gender identity: Female Cognitive needs: No Hearing needs: No Vision needs: Yes Review of Systems Const All systems reviewed & are unremarkable except as noted in HPI and below Eyes Reports no additional complaints ENT Reports no additional complaints Card Denies chest pain, Denies irregular heart rhythm and Reports dyspnea on exertion (Mild) Resp Reports as per HPI and Reports dyspnea on exertion (Mild) GI Reports no additional complaints Reports no additional complaints Musc Reports back pain (Mild chronic) Skin/Breast Reports system reviewed and no additional complaints, except as documented Neuro Reports no additional complaints Psych Reports no additional complaints Endo Reports no additional complaints Physical Exam Vital Signs: Last Vital Signs Pulse 102 H 09/15/24 10:43 BP 142/70 H 09/15/24 10:43 Pulse Ox 96 09/15/24 10:43 Oxygen Delivery Method Room Air 09/15/24 10:43 BMI result Body Mass Index 45.7 Const Other: Grossly obese with BMI 45.2 General: comfortable, no acute distress, alert and awake Orientation/consciousness: patient oriented x3 HEENT Other: Oropharynx is narrow , Mallampati class 4 Head: Yes normal to inspection General nose exam: No nasal polyps present and No nasal discharge present Face and sinus: Yes sinuses nontender Mouth: oropharynx normal Throat: Yes posterior oropharynx normal Eyes General: appearance normal, both eyes and all related structures Neck Neck: Yes normal visual inspection, Yes no lymphadenopathy, Yes trachea midline, Yes no JVD and Yes other (Neck circumference 16 in) Thyroid: Thyroid normal Chest Chest palpation & inspection: normal inspection of the chest, normal palpation of entire chest wall and no tenderness Resp Other: Percussion note is resonant, breath sounds slightly decreased over the basilar areas. But no wheezes or rhonchi are heard. Cardio Palpation: normal PMI Rate: regular rate Rhythm: regular rhythm Heart sounds: no gallops and no murmurs Peripheral pulses: Peripheral pulses 2+ throughout GI Palpation (GI): Soft to palpation, Tenderness to palpation present (GI), No hepatosplenomegaly present and Palpable mass present Auscultation: normal bowel sounds Back/Spine/Pelvis Thoracic/Lumbar Spine: thoracic and lumbar spine normal to inspection and thoraco-lumbar ROM limited Skin General skin exam: no rashes or lesions noted Neuro General: patient oriented x3 and no focal motor deficits Cranial nerves: Yes CN's II-XII intact bilaterally Extrem General: Yes normal to inspection, Yes no clubbing, cyanosis or edema and Yes no calf tenderness Psych Appearance: grossly normal and well kempt Speech and movement: Normal speech and movement present Results Reviewed Results Reviewed: Compliance for the last 30 nights is reviewed. She has used 25/30 nights,. 83% of the nights Average usage per night is 2 hours 36 minutes, not enough. Pressure used mostly 10 cm no air leak residual AHI 2.6 Assessment & Plan Assessment & Plan (1) Morbid obesity with BMI of 40.0-44.9, adult: Comment: PATIENT IS AWARE OF THIS ISSUE, DISCUSSED ABOUT REDUCTION IN THE CALORIES INTAKE AND EXERCISE. SHE IS ENCOURAGED TO JOIN WEIGHT MANAGEMENT PROGRAM AGAIN. SHE SAYS THAT SHE CANNOT BECAUSE SHE HAS TO STAY HOME TO LOOK AFTER HER ELDERLY PARENTS. SHE TRIES TO WATCH HER DIET BUT NOT ENOUGH. Code(s): E66.01 - Morbid (severe) obesity due to excess calories; Z68.41 - Body mass index [BMI] 40.0-44.9, adult Category: Medical Plan: STRESSED THAT SHE HAS TO LOSE WEIGHT, SHE SHOULD TRY TO MANAGE HER DIET,. SHE NEED TO WALK A FEW MILES EVERY DAY IF SHE CAN. (2) BING (obstructive sleep apnea): Comment: SHE DOES USE THE CPAP ALMOST EVERY NIGHT BUT NOT FOR SUFFICIENT TIME. CLAIMS THAT THE CPAP USAGE INCREASES HER BLOOD PRESSURE. I TOLD HER THAT IT WILL BE RATHER INSUFFICIENT USE OF CPAP WHICH CAUSES HIGH B LOOD PRESSURE. IT COULD ALSO BE ANXIETY AND STRESS WHICH INCREASES HER BLOOD PRESSURE. Code(s): G47.33 - Obstructive sleep apnea (adult) (pediatric) Category: Medical Plan: STRESSED THAT SHE HAS TO USE CPAP AT LEAST FOR 4-5 HOURS EVERY NIGHT REGULARLY. SHE MAY BENEFIT FROM USE OF SMALL DOSE OF LORAZEPAM AT BEDTIME, I HAVE GIVEN HER A PRESCRIPTION FOR LORAZEPAM 0.5 MG 30 TABLETS, AND ADVISED HER TO TAKE 1 PILL AT BEDTIME. (3) Asthma: Comment: PATIENT DESCRIBES GETTING SHORT OF BREATH ON EXERTION AND SOMETIMES EVEN AT REST WHEN SHE IS EXPOSED TO COLD AIR. SHE MAY HAVE MILD DEGREE OF BRONCHIAL ASTHMA., Code(s): J45.909 - Unspecified asthma, uncomplicated Category: Medical Plan: MAY USE ALBUTEROL HFA 2 PUFFS Q 4-6 HOURS BUT ONLY P.R.N. IF SHE HAS WHEEZING. (4) Restrictive lung disease: Comment: PER PULMONARY FUNCTION TEST SHE HAS MODERATELY SEVERE RESTRICTIVE PULMONARY DISORDER WHICH WILL BE CONSISTENT WITH HER MORBID OBESITY. Code(s): J98.4 - Other disorders of lung Category: Medical Plan: PATIENT IS EXPLAINED IN DETAIL. ADVISED TO LOSE WEIGHT. ALSO CONTINUE TO USE INCENTIVE SPIROMETRY FOR DEEP BREATHING EXERCISES AT LEAST 3 TIMES A DAY. Medications: New lorazepam 0.5 mg PO BEDTIME 30 days PRN 30 tabs 0RF anxiety/INSOMNIA Coding Level of Care Code Est Pt Level 4 (94962) Diagnoses Morbid obesity with BMI of 40.0-44.9, adult E66.01; Z68.41 BING (obstructive sleep apnea) G47.33 Asthma J45.909 Restrictive lung disease J98.4
== END 2024-09-15 11:07 | disposition home or self-care (01) ==
PROVIDERS: PCP Internal Medicine; Visit Provider Internal Medicine
DX: E66.01 Morbid (severe) obesity due to excess calories (principal); Z68.41 Body mass index [BMI] 40.0-44.9, adult; G47.33 Obstructive sleep apnea (adult) (pediatric); J45.909 Unspecified asthma, uncomplicated; J98.4 Other disorders of lung
CPT/HCPCS: 99214

== ENCOUNTER → 2024-09-15 10:40 | Outpatient (BNVA) | payer MEDICARE, MEDICAID, SELFPAY | PROVIDERS: PCP Internal Medicine; Visit Provider Internal Medicine | DX: G47.33 Obstructive sleep apnea (adult) (pediatric) (principal); J45.909 Unspecified asthma, uncomplicated; J98.4 Other disorders of lung; E66.01 Morbid (severe) obesity due to excess calories; Z68.42 Body mass index [BMI] 45.0-49.9, adult | CPT/HCPCS: 99212 ==

== ENCOUNTER 2024-10-05 15:25 | Outpatient (REF) | payer MEDICARE, MEDICAID, SELFPAY ==
--- NOTE | ~2024-10-05 | MM_ITS ---
EXAMINATION: MM SCREENING DIGITAL BREAST TOMOSYNTHESIS, BILATERAL CLINICAL INFORMATION: Screening. Asymptomatic. COMPARISON: Mammography: Comparison is made with available priors TECHNIQUE: Digital breast mammography with tomosynthesis is performed in both the craniocaudal and mediolateral oblique views along with computer-aided detection (CAD). FINDINGS: There are scattered areas of fibroglandular density (ACR BI-RADS breast composition Category b). There are no significant masses, abnormal calcifications, or other abnormalities. MM/MM tomosynthesis screening BI IMPRESSION: No mammographic evidence of malignancy. ASSESSMENT: BI-RADS BI-RADS 1 - Negative RECOMMENDATION: Routine annual mammography screening. 1 year F/U This examination should not preclude the clinical evaluation of a suspicious palpable abnormality. This patient's information was entered into a reminder system with a target due date for their next mammogram. Electronically signed by: Ludmila Crespo DO 10/13/2024 03:58 PM GRANT
== END 2024-10-05 15:26 | disposition home or self-care (01) ==
LOC: HO.MAMMO 15:25
PROVIDERS: PCP Internal Medicine; Visit Provider Internal Medicine
DX: Z12.31 Encounter for screening mammogram for malignant neoplasm of breast (principal)
CPT/HCPCS: 77063; 77067

== ENCOUNTER → 2024-10-05 15:30 | Outpatient (BNV) | payer MEDICARE, MEDICAID, SELFPAY | PROVIDERS: PCP Internal Medicine; Visit Provider Internal Medicine | DX: Z12.31 Encounter for screening mammogram for malignant neoplasm of breast (principal) | CPT/HCPCS: 77063; 77067 ==

== ENCOUNTER 2024-12-08 10:34 | Outpatient (AMB) | payer MEDICARE, MEDICAID, SELFPAY ==
[2024-12-08 10:40] VITALS: BP 140/82; PULSE 94; O2SAT 96; BMI 45.9
--- NOTE | 2024-12-08 10:40 | MHC.OFFVIS ---
Vital Signs 12/08/24 10:40 Height 5 ft 0.5 in Weight 239 lb 3.225 oz BMI 45.9 BP 140/82 H Blood Pressure Location Lt brachial Position Sitting Pulse 94 Pulse Source Pulse Oximeter Pulse Oximetry (%) 96 Oxygen Delivery Method Room Air Intake Visit Reasons: Obstructive sleep apnea Intake Note: pt is her for follow up and states she is tired and exhausted from care taking but using as much she can with what is going on in the home. Hazardous Material Specialist Required: No Allergies acetaminophen [From Percocet] Allergy (Intermediate, Verified 12/08/24 11:11) HEART RACES epinephrine [Epinephrine] Allergy (Intermediate, Verified 12/08/24 11:11) CHEST PAIN/HEART RACES , palpitations morphine Allergy (Intermediate, Verified 12/08/24 11:11) migraine oxycodone [Percocet] Allergy (Intermediate, Verified 12/08/24 11:11) palpitations aspirin [Aspirin] Allergy (Mild, Verified 12/08/24 11:11) STOMACH UPSET, abd pain ibuprofen [From Motrin] Allergy (Mild, Verified 12/08/24 11:11) STOMACH UPSET amoxicillin [Amoxicillin] Adverse Reaction (Mild, Verified 12/08/24 11:11) STOMACH UPSET Medication List - Last Reconciled 12/08/24 by Rachael Sepulveda MD albuterol sulfate 90 mcg/actuation 1 inh inhalation QID PRN 30 days amlodipine 5 mg PO BID 90 days [id number]-hphydecfbleyj-fdnc 50-325-40 mg 1 tab PO BID PRN 30 days cholecalciferol (vitamin D3) 25 mcg PO DAILY 90 days CPAP autoPAP mode 6-20 cmH2O cyclobenzaprine 10 mg PO BEDTIME PRN 90 days docusate sodium (Colace) 100 mg PO DAILY PRN 90 days lorazepam (Ativan) 0.5 mg PO BEDTIME PRN 30 days lorazepam 0.5 mg PO BEDTIME PRN 30 days Do you need a note to return to daycare/school/sports/work: No HPI HPI Obstructive sleep apnea: Details: 64 YEARS OLD VERY PLEASANT FEMALE WITH MORBID OBESITY, CURRENT BMI 45.9, IS A CASE OF OBSTRUCTIVE SLEEP APNEA. SHE TAKES CARE OF HER ELDERLY FATHER. CLAIMS THAT SHE GETS VERY TIRED, SHE IS NOT GETTING ENOUGH SLEEP AT NIGHT. SHE IS TRYING TO USE CPAP EVERY NIGHT BUT ENDS UP USING ONLY ABOUT 3-4 HOURS PER NIGHT. SOMETIMES SHE HAS TO USE IT DURING THE DAYTIME WELL. SHE HAS NOT BEEN ABLE TO LOSE MUCH WEIGHT. SHE DOES USE LORAZEPAM 0.5 MG AT BEDTIME TO PROMOTE SLEEP. SHE HAS ONLY OCCASIONAL WHEEZING, AND USES ALBUTEROL HFA P.R.N.. [facility] Medical History Restrictive lung disease Asthma Anxiety Osteoarthritis Carpal tunnel syndrome Headache Mild persistent asthma Chronic fatigue Physical exam Daytime sleepiness Hx of abnormal cervical Pap smear Essential hypertension FH: ovarian cancer FH: breast cancer Morbid obesity with BMI of 40.0-44.9, adult Elevated blood pressure reading Head injury Migraines Hypovitaminosis D Fibromyalgia Surgical History History of removal of laparoscopic gastric banding device History of abdominoplasty History of adjustable gastric banding History of section Family History Father Acute CVA (cerebrovascular accident) Hypertension Mother Cancer of kidney Brother FH: testicular cancer Maternal Grandmother Breast cancer Paternal Grandmother Ovarian cancer Family/Other FH: mental illness Social History Housing: Apartment Alcohol intake: former Patient Tobacco Use Status: Former Tobacco user Tobacco use type: Cigarette e-Cigarette/Vaping Use: Never Used Second Hand Smoke Exposure: No service: No Current occupational status: unemployed Sexual orientation: Straight/Heterosexual Gender identity: Female Cognitive needs: No Hearing needs: No Vision needs: Yes Review of Systems Const All systems reviewed & are unremarkable except as noted in HPI and below Eyes Reports no additional complaints ENT Reports no additional complaints Card Denies chest pain, Denies irregular heart rhythm and Reports dyspnea on exertion (Mild) Resp Reports as per HPI and Reports dyspnea on exertion (Mild) GI Reports no additional complaints Reports no additional complaints Musc Reports back pain (Mild chronic) Skin/Breast Reports system reviewed and no additional complaints, except as documented Neuro Reports no additional complaints Psych Reports no additional complaints Endo Reports no additional complaints Physical Exam Vital Signs: Last Vital Signs Pulse 94 12/08/24 10:40 BP 140/82 H 01/15/25 10:40 Pulse Ox 96 12/08/24 10:40 Oxygen Delivery Method Room Air 12/08/24 10:40 BMI result Body Mass Index 45.9 Const Other: Grossly obese with BMI 45.2 General: comfortable, no acute distress, alert and awake Orientation/consciousness: patient oriented x3 HEENT Other: Oropharynx is narrow , Mallampati class 4 Head: Yes normal to inspection General nose exam: No nasal polyps present and No nasal discharge present Face and sinus: Yes sinuses nontender Mouth: oropharynx normal Throat: Yes posterior oropharynx normal Eyes General: appearance normal, both eyes and all related structures Neck Neck: Yes normal visual inspection, Yes no lymphadenopathy, Yes trachea midline, Yes no JVD and Yes other (Neck circumference 16 in) Thyroid: Thyroid normal Chest Chest palpation & inspection: normal inspection of the chest, normal palpation of entire chest wall and no tenderness Resp Other: Percussion note is resonant, breath sounds slightly decreased over the basilar areas. But no wheezes or rhonchi are heard. Cardio Palpation: normal PMI Rate: regular rate Rhythm: regular rhythm Heart sounds: no gallops and no murmurs Peripheral pulses: Peripheral pulses 2+ throughout GI Palpation (GI): Soft to palpation, Tenderness to palpation present (GI), No hepatosplenomegaly present and Palpable mass present Auscultation: normal bowel sounds Back/Spine/Pelvis Thoracic/Lumbar Spine: thoracic and lumbar spine normal to inspection and thoraco-lumbar ROM limited Skin General skin exam: no rashes or lesions noted Neuro General: patient oriented x3 and no focal motor deficits Cranial nerves: Yes CN's II-XII intact bilaterally Extrem General: Yes normal to inspection, Yes no clubbing, cyanosis or edema and Yes no calf tenderness Psych Appearance: grossly normal and well kempt Speech and movement: Normal speech and movement present Results Reviewed Results Reviewed: COMPLIANCE REPORT FOR THE LAST 30 NIGHTS IS REVIEWED. SHE HAS USED 29/30 NIGHTS, 96% WHICH IS FINE. AVERAGE USAGE PER NIGHT IS 3 HOURS 30 MINUTES WHICH REMAINS SUBOPTIMAL. THE AVERAGE PRESSURE THAT SHE IS USING IS 7.5 CM, THERE IS NO SIGNIFICANT AIR LEAK. RESIDUAL AHI 4.9, Assessment & Plan Assessment & Plan (1) Morbid obesity with BMI of 40.0-44.9, adult: Comment: PATIENT IS AWARE OF THIS ISSUE, DISCUSSED ABOUT NEED TO LOOSE WEIGHT . SHE IS ENCOURAGED TO JOIN WEIGHT MANAGEMENT PROGRAM AGAIN. SHE SAYS THAT SHE CANNOT BECAUSE SHE HAS TO STAY HOME TO LOOK AFTER HER ELDERLY PARENTS. SHE TRIES TO WATCH HER DIET BUT NOT ENOUGH. Code(s): E66.01 - Morbid (severe) obesity due to excess calories; Z68.41 - Body mass index [BMI] 40.0-44.9, adult Category: Medical Plan: AGAIN DISCUSSED ABOUT NEED TO LOSE WEIGHT. AGAIN SHE HAS THE SAME EXCUSE THAT SHE IS BUSY TAKING CARE OF HER ELDERLY PARENTS. ENCOURAGED TO DO SOME PHYSICAL EXERCISE AT LEAST FOR HALF AN HOUR DAILY. (2) Restrictive lung disease: Comment: PER PULMONARY FUNCTION TEST SHE HAS MODERATELY SEVERE RESTRICTIVE PULMONARY DISORDER WHICH IS CONSISTENT WITH HER MORBID OBESITY. Code(s): J98.4 - Other disorders of lung Category: Medical Plan: WEIGHT LOSS, DO DEEP BREATHING EXERCISES 3 TIMES A DAY. (3) Asthma: Comment: PATIENT DESCRIBES GETTING SHORT OF BREATH ON EXERTION AND SOMETIMES EVEN AT REST WHEN SHE IS EXPOSED TO COLD AIR. SHE MAY HAVE MILD DEGREE OF BRONCHIAL ASTHMA., Code(s): J45.909 - Unspecified asthma, uncomplicated Category: Medical Plan: OK TO USE ALBUTEROL HFA 2 PUFFS Q 6 HOURS P.R.N.. (4) BING (obstructive sleep apnea): Comment: SHE DOES USE THE CPAP ALMOST EVERY NIGHT BUT NOT FOR SUFFICIENT TIME. SHE CLAIMS THAT THE MASK COMES OFF AFTER A FEW HOURS AND THEN SHE FORGETS TO PUT IT BACK ON. Code(s): G47.33 - Obstructive sleep apnea (adult) (pediatric) Category: Medical Plan: AGAIN DISCUSSED THE IMPORTANCE OF USING THE MASK AT LEAST FOR 4-5 HOURS EVERY NIGHT. SHE IS ALSO ENCOURAGED TO USE DURING THE DAYTIME IF SHE TAKES ANY NAP IN THE AFTERNOON. Coding Level of Care Code Est Pt Level 3 (11684) Diagnoses Morbid obesity with BMI of 40.0-44.9, adult E66.01; Z68.41 Restrictive lung disease J98.4 Asthma J45.909 BING (obstructive sleep apnea) G47.33
== END 2024-12-08 11:03 | disposition home or self-care (01) ==
PROVIDERS: PCP Internal Medicine; Visit Provider Internal Medicine
DX: E66.01 Morbid (severe) obesity due to excess calories (principal); Z68.41 Body mass index [BMI] 40.0-44.9, adult; J98.4 Other disorders of lung; J45.909 Unspecified asthma, uncomplicated; G47.33 Obstructive sleep apnea (adult) (pediatric)
CPT/HCPCS: 99213

== ENCOUNTER → 2024-12-08 10:34 | Outpatient (BNVA) | payer MEDICARE, MEDICAID, SELFPAY | PROVIDERS: PCP Internal Medicine; Visit Provider Internal Medicine | DX: G47.33 Obstructive sleep apnea (adult) (pediatric) (principal); E66.01 Morbid (severe) obesity due to excess calories; J98.4 Other disorders of lung; J45.909 Unspecified asthma, uncomplicated; Z68.42 Body mass index [BMI] 45.0-49.9, adult; Z87.891 Personal history of nicotine dependence | CPT/HCPCS: 99212 ==

== ENCOUNTER 2025-02-21 09:42 | Outpatient (AMB) | payer MEDICARE, MEDICAID, SELFPAY ==
--- NOTE | 2025-02-21 09:49 | A.OFFPC_ITS ---
Vital Signs 02/21/25 09:51 Height 5 ft 0.5 in Weight 236 lb BMI 45.3 BP 134/80 Blood Pressure Location Lt brachial Position Sitting Intake Visit Reasons: Annual exam Intake Note: Patient here for a physical exam Clerk Specialist Required: No Accompanied by: Self / Same As Patient Allergies acetaminophen [From Percocet] Allergy (Intermediate, Verified 02/21/25 09:58) HEART RACES epinephrine [Epinephrine] Allergy (Intermediate, Verified 02/21/25 09:58) CHEST PAIN/HEART RACES , palpitations morphine Allergy (Intermediate, Verified 02/21/25 09:58) migraine oxycodone [Percocet] Allergy (Intermediate, Verified 02/21/25 09:58) palpitations aspirin [Aspirin] Allergy (Mild, Verified 02/21/25 09:58) STOMACH UPSET, abd pain ibuprofen [From Motrin] Allergy (Mild, Verified 02/21/25 09:58) STOMACH UPSET amoxicillin [Amoxicillin] Adverse Reaction (Mild, Verified 02/21/25 09:58) STOMACH UPSET Medication List - Last Reconciled 02/21/25 by Kathryn Suárez MD albuterol sulfate 90 mcg/actuation 1 inh inhalation QID PRN 30 days amlodipine 5 mg PO BID 90 days ghwdgxurtb-zaqojtnkpnfkr-vjlo 50-325-40 mg 1 tab PO BID PRN 30 days cholecalciferol (vitamin D3) 25 mcg PO DAILY 90 days CPAP autoPAP mode 6-20 cmH2O cyclobenzaprine 10 mg PO BEDTIME PRN 90 days docusate sodium (Colace) 100 mg PO DAILY PRN 90 days lorazepam (Ativan) 0.5 mg PO BEDTIME PRN 30 days lorazepam 0.5 mg PO BEDTIME PRN 30 days Tobacco use date assessed: 02/21/25 Dental Screening Dental Screen Date: 02/21/25 Did you have a dental visit in the last 12 months?: No Did you have a dental problem in the last 6 months where you did not have access to dental care?: No Was dental information given to patient?: Patient has dentist HPI HPI Comments History of Present Illness Details The patient is a 65-year-old female presenting for an annual physical examination. She reports significant stress related to her father's health deterioration and the recent sudden of her best friend. Her father, aged 93, has been in declining health, experienced pneumonia, and is currently under hospice care, which contributes to the patient?s stress. The patient's anxiety is fueled by the severity of her situation, exacerbating stress-induced symptoms such as chest discomfort. She has expressed concern regarding chronic neck pain that has been progressive. Mornings are especially difficult due to lingering hand stiffness. The patient has undergone previous physical therapy but is seeking further evaluation, as she believes that surgical intervention may be required due to worsening symptoms. The chest pain experienced is characterized as intermittent and occurs mainly during periods of rest, indicating possible stress linkage rather than an organic cardiac cause. Increased bread consumption due to family meal preparations has led to weight concerns, despite the patient's usually healthy eating habits centered around salads. She is morbidly obese and was advised to do diet and exercise to reach BMI goal less than 30. She also has pelvic pain and would like an ultrasound of the pelvis. - Pap smear: Completed last year - Mammogram: Completed last year - Tetanus vaccine: Last administered in 2018; next due in 2028 - Colon cancer screening needed: Patient has not had a colonoscopy or used Cologuard - Blood pressure is well controlled on c urrent antihypertensive regimen [facility] Medical History (Updated 02/21/25 @ 10:18 by Kathryn Suárez MD) Restrictive lung disease Asthma Anxiety Osteoarthritis Carpal tunnel syndrome Headache Mild persistent asthma Chronic fatigue Physical exam Daytime sleepiness Hx of abnormal cervical Pap smear Essential hypertension FH: ovarian cancer FH: breast cancer Morbid obesity with BMI of 40.0-44.9, adult Elevated blood pressure reading Head injury Migraines Hypovitaminosis D Fibromyalgia Surgical History History of removal of laparoscopic gastric banding device History of abdominoplasty History of adjustable gastric banding History of section Family History Father Acute CVA (cerebrovascular accident) Hypertension Mother Cancer of kidney Brother FH: testicular cancer Maternal Grandmother Breast cancer Paternal Grandmother Ovarian cancer Family/Other FH: mental illness Social History Housing: Apartment Alcohol intake: former Patient Tobacco Use Status: Former Tobacco user Tobacco use type: Cigarette e-Cigarette/Vaping Use: Never Used Second Hand Smoke Exposure: No service: No Current occupational status: unemployed Sexual orientation: Straight/Heterosexual Gender identity: Female Cognitive needs: No Hearing needs: No Vision needs: Yes Questionnaire PHQ-9 Over the last 2 weeks, how often have you been bothered by any of the following problems? 1. Little interest or pleasure in doing things: not at all 2. Feeling down, depressed, or hopeless: not at all 3. Trouble falling or staying asleep, or sleeping too much: not at all 4. Feeling tired or having little energy: several days 5. Poor appetite or overeating: several days 6. Feeling bad about yourself - or that you are a failure or have let yourself or your family down: not at all 7. Trouble concentrating on things, such as reading the newspaper or watching television: not at all 8. Moving or speaking so slowly that other people could have noticed. Or the opposite - being so fidgety or restless that you have been moving around a lot more than usual: not at all 9. Thoughts that you would be better off or of hurting yourself in some way: not at all Total score: 2 Depression Screening Interpretation: Negative Depression Screening Done: Yes 78844 - PHQ-9 Billing: Yes Source: Developed by Drs. Juvenal Bass, Sarah Esqueda, Rohit Pinto and colleagues, with an educational sergey from [employer] Thrive Questionnaire Date Thrive assessed: 02/21/25 I am a: Patient What is your living situation today?: I have a steady place to live Within the past 12 months, did the food you bought not last and you didn't have the money to get more?: Never true Within the past 12 months, did you worry whether your food would run out before you got money to buy more?: Never true Do you have trouble paying for medicines?: No Do you have trouble getting transportation to medical appointments?: No Do you have trouble paying your heating and electricity bill?: No Do you have trouble taking care of your child, family member or friend?: No Do you have trouble with day-to-day activities such as bathing, preparing meals, shopping, managing finances, etc.?: No Are you currently unemployed and looking for a job?: No Are you interested in more education?: No Please select the resources that you would like help with: None Currently or been in a relationship where the following occur: No concerns reported THRIVE Score: 0 AUDIT C Alcohol Use Questionnaire (AUDIT-C) 1. How often do you have a drink containing alcohol?: Never Total Score: 0 Score Reviewed/Action Taken: No ALEX-7 AMB Questionnaire ALEX-7 Date ALEX - 7 assessed: 02/21/25 Feeling nervous, anxious, or on edge: 1 = Several days Not being able to stop or control worryin = Not at all Worrying too much about different things: 1 = Several days Trouble relaxin = Several days Being so restless that it is hard to sit still: 0 = Not at all Becoming easily annoyed or irritable: 0 = Not at all Feeling afraid as if something awful might happen: 0 = Not at all Total ALEX-7 score (0-4 normal; 5-9 mild; 10-14 moderate; 15-21 severe): 3 Source: Developed by Drs. Juvenal Bass, Sarah Esqueda, Rohit Pinto and colleagues, with an educational sergey from [employer] ALEX-7 Assessment Billing ALEX-7 Assessment Tool: ALEX-7 Assessment 06215 Review of Systems Const All systems reviewed & are unremarkable except as noted in HPI and below ENT Reports neck pain Card Reports chest pain at rest, Reports chest pain with activity, Denies edema, Denies irregular heart rhythm, Denies claudication, Denies dyspnea, Denies dyspnea on exertion, Denies orthopnea, Denies paroxysmal nocturnal dyspnea and Denies slow heart rate Resp Denies cough, Denies dyspnea and Denies dyspnea on exertion GI Denies abdominal pain, Denies change in bowel habits, Denies excessive flatus, Denies nausea and Denies vomiting Denies urinary incontinence, Denies urinary hesitancy and Denies urinary urgency Musc Reports back pain and Reports neck pain Neuro Denies lack of coordination Physical exam (Primary Care) Vital Signs: Last Vital Signs BP 134/80 02/21/25 09:51 BMI result Body Mass Index 45.3 BMI Assessment/Plan discussion: High BMI High, discussed plan: lifestyle, weight reduction, dietary and physical activity Tobacco/Smoking Status: Tobacco use Status Tobacco use date assessed 02/21/25 02/21/25 09:57 Patient Tobacco Use Status Former Tobacco user 02/21/25 09:52 Tobacco use type Cigarette 02/21/25 09:52 e-Cigarette/Vaping Use Never Used 02/21/25 09:52 PHQ-9: PHQ-9 Score PHQ-9: Total score 2 02/21/25 10:00 Depression Screening Interpretation: Negative Thrive Assessment: Date of Thrive Assessment Date Thrive assessed 02/21/25 02/21/25 09:52 Currently or been in a relationship where the following occur: No concerns reported HENIL Head: Yes normal to inspection, Yes normocephalic and Yes atraumatic Ears: external ears normal Eyes General: appearance normal, both eyes and all related structures Eyelids: Yes eyelids normal Conjunctivae: conjunctivae normal Neck Neck: Yes normal visual inspection and Yes supple Resp Effort & Inspection: normal respiratory effort Auscultation: clear to auscultation bilaterally Cardio Jugular venous distension: no JVD Rate: regular rate Rhythm: regular rhythm Heart sounds: S1 normal heart sound present and S2 normal heart sound present GI Inspection: Yes normal to inspection Palpation (GI): Soft to palpation and nontender Auscultation: normal bowel sounds Skin General skin exam: no rashes or lesions noted Neuro General: no focal motor deficits Extrem General: Yes full ROM Psych Appearance: grossly normal Coding Level of Care Code Est Pt Level 4 (69273) Est Pt Prev Care 40-64y(59707) Diagnoses Physical exam Z00.00 Morbid obesity E66.01 Chest pain R07.9 Pelvic pain in female R10.2 Cervical spondylitis with radiculitis M46.92; M54.12 Additional Codes ALEX-7 Assessment Billing - ALEX-7 Assessment Tool: ALEX-7 Assessment 00750 ([id number]) PHQ-9 - 17440 - PHQ-9 Billing: Yes ([id number]) Time Spent (min) 38 Assessment & Plan Assessment & Plan (1) Physical exam: Code(s): Z00.00 - Encounter for general adult medical examination without abnormal findings Category: Medical (2) Morbid obesity: Code(s): E66.01 - Morbid (severe) obesity due to excess calories Category: Medical (3) Chest pain: Code(s): R07.9 - Chest pain, unspecified Category: Medical (4) Pelvic pain in female: Code(s): R10.2 - Pelvic and perineal pain Category: Medical (5) Cervical spondylitis with radiculitis: Code(s): M46.92 - Unspecified inflammatory spondylopathy, cervical region; M54.12 - Radiculopathy, cervical region Category: Medical Plan The management of the patient?s hypertension remains consistent with her current medication regimen, given its efficacy. Stress management has become pivotal, leading to discussions on stress reduction strategies. Chronic neck pain requires attention through an orthopedic referral, with imaging and potential surgical discourse if necessary. While chest pain seems stress-induced, vigilance for any alarming cardiac symptoms is crucial. Screening for colorectal cancer is incomplete; a colonoscopy or Cologuard test was discussed for future scheduling. Continuous CPAP usage is important for her sleep apnea management. Patient was informed and verbally consented to the use of an ambient scribe for clinic note documentation during this visit. I discussed with the patient the importance of managing her stress levels given her familial situation and personal losses, which may be contributing to her anxiety and intermittent chest pain. We conversed about existing medications, reinforcing the current antihypertensive therapy due to its success and verifying the lack of recent need for anxiety medications. I highlighted the necessity of pursuing orthopedic evaluation for her chronic neck pain, outlining possible interventions such as an MRI, which may lead to further recommendations like surgery. We addressed the gap in her colorectal cancer screening and stressed the need for follow-through on appropriate testing. I encouraged her to maintain her strategies for weight management and emphasized the essential role of her CPAP machine for sleep apnea. Orders: Orders US pelvic and transvaginal Today R10.2 - Pelvic and perineal pain Vitamin D 25-OH Total Today E55.9 - Vitamin D deficiency, unspecified Comprehensive [place]. Panel Fast Today Z00.00 - Encounter for general adult medical examination without abnormal findings Lipid Panel Today E78.5 - Hyperlipidemia, unspecified ECG 12 lead EKG Today R07.9 - Chest pain, unspecified Referrals Orthopedics Referral M46.92 - Unspecified inflammatory spondylopathy, cervical region, M54.12 - Radiculopathy, cervical region Patient Instructions: - Continue current medications as prescribed, notably the amlodipine. - Manage stress with relaxation techniques and family support. - Schedule an orthopedic evaluation for neck pain. - Monitor the chest pain and seek attention if the pain becomes severe or frequent. - Pursue colonoscopy for cancer screening. - Maintain CPAP usage during sleep. - Follow up with annual health maintenance tests, specifically those overdue.
[2025-02-21 09:51] VITALS: BP 134/80; BMI 45.3
== END 2025-02-21 10:20 | disposition home or self-care (01) ==
LOC: HO.HMCH 09:43
PROVIDERS: PCP Internal Medicine; Visit Provider Internal Medicine
DX: Z00.00 Encounter for general adult medical examination without abnormal findings (principal); R07.9 Chest pain, unspecified; Z68.42 Body mass index [BMI] 45.0-49.9, adult; E66.01 Morbid (severe) obesity due to excess calories; M46.92 Unspecified inflammatory spondylopathy, cervical region; R10.2 Pelvic and perineal pain; M54.12 Radiculopathy, cervical region

== ENCOUNTER → 2025-02-21 09:42 | Outpatient (BNVA) | payer MEDICARE, MEDICAID, SELFPAY | PROVIDERS: PCP Internal Medicine; Visit Provider Internal Medicine | DX: Z00.00 Encounter for general adult medical examination without abnormal findings (principal); E66.01 Morbid (severe) obesity due to excess calories; R07.9 Chest pain, unspecified; R10.2 Pelvic and perineal pain; M46.92 Unspecified inflammatory spondylopathy, cervical region; M54.12 Radiculopathy, cervical region; E55.9 Vitamin D deficiency, unspecified; E78.5 Hyperlipidemia, unspecified; Z68.42 Body mass index [BMI] 45.0-49.9, adult | CPT/HCPCS: 96127; 99212; 99396 ==

== ENCOUNTER 2025-07-29 16:27 | Outpatient (REF) | payer MEDICARE, MEDICAID, SELFPAY ==
--- NOTE | ~2025-07-29 | US_ITS ---
EXAMINATION: US PELVIS CLINICAL INFORMATION: R10.2 - Pelvic and perineal pain COMPARISON: July 26, 2022 TECHNIQUE: Ultrasound of the pelvis is performed using both transabdominal and transvaginal transducers along with Doppler. Transvaginal imaging is performed due to inadequate visualization transabdominally. FINDINGS: Uterus: The uterus is anteverted and measures 5.5 x 2.0 x 3.6 cm. The double wall endometrial thickness is 2 mm. The uterus is smooth in contour and has normal myometrial echogenicity. No visible fibroid. Adnexa: There is normal color flow to the adnexa. There is no ovarian torsion. There is no pelvic ascites or fluid collection. Right ovary is nonvisualized Left ovary measures 1.0 x 1.1 x 1.0 cm. US/US pelvic and transvaginal IMPRESSION: Unremarkable pelvic ultrasound. Nonvisualized right ovary Electronically signed by: Ethan Camacho MD 07/29/2025 05:00 PM EDT
--- OUTSIDE RECORDS SUMMARY | 2025-07-29 16:31 | XMS_ITS | Encounter Summary ---
Author Organization [facility] Address [address] [place] [address] Phone Care Team Providers Care Bakery Demonstrator Name Role Phone Kathryn Monreal MD Primary Care Provid er Self-Referred, Patient Unavailable Unavailab Dona Guevara MD Unavailable [phone] Shanita Albright CNM Unavailable [phone] Encounter Details Date Type Department Care Team (Late st Contact Info) Description 05/19/2025 Procedure Pass [facility] Periop [address] [place] [address] Social History Tobacco Use Types Packs/Day Years Used Date Smoking Tobacco: Never Smokeless Tobacco: Never Alcohol Use Standard Drinks/Week Comments Never 0 (1 standard drink = 0.6 oz pur e alcohol) Education Answer Date Recorded Are you interested in more education? Not on denny e 12/17/2023 Are you concerned about learning? Not on file 12/17/2023 No 12/17/2023 No 12/17/2023 Digital Access Answer Date Recorded No 12/17/2023 No 12/17/2023 Reliable internet access at home? Not on file 12/17/2023 Device with a working camera? Not on file Comments No Sex and Gender Information Value Date Recorded Sex Assigned at Female 06/12/2023 3:15 PM EDT Legal Sex Female 10:34 PM EDT Gender Identity Female 06/12/2023 3:15 PM EDT Sexual Orientation Straight 06/12/2023 3: 15 PM EDT documented as of this encounter Plan of Treatment Not on file documented as of this encounter Visit Diagnoses Not on filedocumented in this encounter Care Teams Bakery Demonstrator Relationship Specialty Start Date End Date Kathryn Monreal MD [address] [place] [address] PCP - General Internal Medicine 06/12/23 Self-Referred, Patient 12/09/23 Dona Roberts MD [address] [place] [address] 4B_OB/SPECIAL EDUCATION [place] [address] Obstetrics and Gynecology 04/15/24 Shanita Albright CNM [address] [place] [address] [place] [address] Obstetrics 04/15/24 documented as of this encounter Additional Source Comments The information contained in this document represents components of the legal health record. It is not the complete legal health record.[facility]
--- OUTSIDE RECORDS SUMMARY | 2025-07-29 16:31 | XMS_ITS | Clinical Summary ---
Author Organization [facility] Address [address] [facility] [address] [place] [address] Phone Care Team Providers Care Rescue Worker Name Role Phone Kathryn Monreal MD Primary Care Provid er Self-Referred, Patient Unavailable Unavailab Dona Guevara MD Unavailable [phone] Shanita Albright CNM Unavailable [phone] Allergies Active Allergy Reactions Criticality Noted Date Comments Aspirin Pain Low 12/30/2023 Epinephrine Palpitations Low 12/30/2023 Morphine Headaches 12/30/2023 Oxycodone-Acetaminophen Palpitations Low 12/30/2023 Medications amLODIPine (NORVASC) 5 MG tablet Take 1 tablet by mouth every morning. 3 Active VITAMIN D3 25 mcg (1,000 unit) capsule Take 1,000 Units by mouth daily. 3 Active LORazepam (ATIVAN) 0.5 MG tablet Take 0.5 mg by mouth After Meals as needed. 2 Active butalbital-acetam inophen-caffeine (FIORICET, ESGIC) 50-325-40 mg per tablet Take 1 tablet by mouth every 4 (four) hours as needed for pain (specific location in comments). Active therapeutic multivitamin tablet Take 1 tablet by mouth daily. Active cyclobenzaprine (FLEXERIL) 10 MG tablet Take 10 mg by mouth nightly at bedtime as needed (muscle spasm). 4 Active lidocaine (LMX 5) 5 % Crea Apply topically every 4 (four) hours as needed. 100 g Active betamethasone dipropionate 0.05 % ointment Apply topically as directed. Apply thin layer at night for 6 weeks. 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 Spinal stenosis 12/29/2023 Encounters Date Type Department Care Team Description 05/19/2025 Procedure Pass [facility] Periop [address] [place] [address] 05/05/2025 Orders Only [facility] [address] [place] [address], [address] [place] [address] Viktoria Mir MD 05/04/2025 11:30 AM EDT Office Visit [facility], [facility] [place] [address] [facility] [address] [place] [address] Viktoria Mir MD Vulvar intraepithelial neoplasia (Primary Dx) from Last 3 Months Social History Tobacco Use Types Packs/Day Years [...] Orientation Straight 06/12/2023 3: 15 PM EDT Last Filed Vital Signs Vital Sign Reading Time Taken Comments Blood Pressure 162/79 05/04/2025 11:38 AM EDT Pulse 83 05/04/2025 11:38 AM EDT Temperature 36.1 C (97 F) 05/04/2025 11:38 AM EDT Respiratory Rate 16 05/04/2025 11:3 8 AM EDT Oxygen Saturation 97% 05/04/2025 11: 38 AM EDT Inhaled Oxygen Concentration - - Weight 106.4 kg (234 lb 9.1 oz) 025 11:38 AM EDT Height 154.4 cm (5' 0.79 ) 05/04/2025 1 1:38 AM EDT Body Mass Index 44.63 05/04/2025 11:38 AM EDT Plan of Treatment Health Maintenance Due Date Last Done Comments Adult Td,Tdap Booster 1962 LIPID PANEL 1962 DEPRESSION SCREENING 1974 HEPATITIS C SCREENING 02/07/1980 HIV ONE-TIME SCREENING (18-6 5 YEARS) 02/07/1980 PNEUMOCOCCAL VACCINES (50+ y ears) (1 of 2 - PCV) 1981 PAP SMEAR 1983 SCREENING FOR DIABETES 1997 MAMMOGRAM 2002 COLOGUARD 2007 COLONOSCOPY 2007 COLORECTAL CANCER SCREENING 2007 FIT TEST 2007 FOBT 2007 SIGMOIDOSCOPY 2007 VIRTUAL COLONOSCOPY 2007 ZOSTER VACCINES (1 of 2) 02/07/2012 RSV VACCINE (1 - Risk 60-74 years 1-dose series) 2022 INFLUENZA VACCINE (#1) 2025 COVID-19 VACCINE (1 - 2023-2 5 season) 2025 BLOOD PRESSURE 11/03/2025 05/04/2025 SMOKING STATUS SCREENING (On ce After 26 Yrs) Completed 02/11/2024 HEPATITIS A VACCINES Aged Out No long er eligible based on patient's age to complete this topic HIB VACCINES Aged Out No longer eligi ble based on patient's age to complete this topic MENINGOCOCCAL VACCINES (ACWY) Aged Out No longer eligible based on patient's age to complete this topic MENINGOCOCCAL VACCINES (B) Aged Out N o longer eligible based on patient's age to complete this topic Medical Devices Not on file [facility] & B [facility] MEDICARE PART A & B [facility] MEDICARE PART A & B [facility] MEDICARE PART A & B [facility] MEDICARE PART A & B Care Teams Rescue Worker Relationship Specialty Start Date End Date Kathryn Monreal MD [address] [place] [id number] PCP - General Internal Medicine 06/12/23 Self-Referred, Patient 12/09/23 Dona Roberts MD [address] [place] [address] 4B_OB/DIRECT[place] [address] Obstetrics and Gynecology 04/15/24 Shanita Albright CNM [address] [place] [address] [place] [address] Obstetrics 04/15/24 Additional Source Comments The information contained in this document represents components of the legal health record. It is not the complete legal health record.[facility]
--- OUTSIDE RECORDS SUMMARY | 2025-07-29 16:31 | XMS_ITS | Clinical Summary ---
Author Organization [facility] Address [address] [place] [address] Care Team Providers Care Medical Doctor Nuclear Medicine Name Role Phone Kathryn Suárez MD Primary Care Provider [phone] Social History Tobacco Use Types Packs/Day Years Used Date Smoking Tobacco: Never Assessed Comments Unknown Sex and Gender Information Value Date Recorded Sex Assigned at Not on file Legal Sex Female 1:11 AM EST Gender Identity Not on file Sexual Orientation Not on file Plan of Treatment Health Maintenance Due Date Last Done Comments Breast Cancer Screening 1962 DTaP,Tdap,and Td Vaccines (1 - Tdap) 1981 Cervical Cancer Screening: P ap Smear 1983 Pneumococcal Vaccine: 50+ Ye ars (1 of 1 - PCV) 02/07/2012 Zoster Vaccines (1 of 2) 02/07/2012 Depression Screening 11/24/2024 COVID-19 Vaccine ( - 2023-2 5 season) 2025 Influenza Vaccine (#1) 2025 RSV Immunization Adult Patie nts (1 - 1-dose 75+ series) 2037 HIB Vaccines Aged Out No longer eligi ble based on patient's age to complete this topic HPV Vaccines Aged Out No longer eligi ble based on patient's age to complete this topic Hepatitis A Vaccines Aged Out No long er eligible based on patient's age to complete this topic Hepatitis B Vaccines Aged Out No long er eligible based on patient's age to complete this topic IPV Vaccines Aged Out No longer eligi ble based on patient's age to complete this topic MMR Vaccines Aged Out No longer eligi ble based on patient's age to complete this topic Meningococcal ACWY Vaccine Aged Out N o longer eligible based on patient's age to complete this topic Meningococcal B Vaccine Aged Out No l onger eligible based on patient's age to complete this topic RSV Immunization Patients Un faustino 20 months Aged Out No longer eligible b ased on patient's age to complete this topic Varicella Vaccines Aged Out No longer eligible based on patient's age to complete this topic Care Teams Medical Doctor Nuclear Medicine Relationship Specialty Start Date End Date Kathryn Suárez MD [address] [place] [address] , [address] [facility] Acharya PCP - General Internal Medicine 02/07/18
--- OUTSIDE RECORDS SUMMARY | 2025-07-29 16:31 | XMS_ITS | Encounter Summary ---
Author Organization [facility] Address [address] [place] [address] Phone Care Team Providers Care Implement Mechanic Name Role Phone Kathryn Monreal MD Primary Care Provid er Self-Referred, Patient Unavailable Unavailab Dona Guevara MD Unavailable [phone] Shanita Albright CNM Unavailable [phone] Encounter Details Date Type Department Care Team (Late st Contact Info) Description 03/25/2024 Procedure Pass [facility] Periop [address] [place] [address] Social History Tobacco Use Types Packs/Day Years [...] on filedocumented in this encounter Care Teams Implement Mechanic Relationship Specialty Start Date End Date Kathryn Monreal MD [address] [place] [address] PCP - General Internal Medicine 06/12/23 Self-Referred, Patient 12/09/23 Dona Roberts MD [address] [place] [address] 4B_OB/P[place] [address] Obstetrics and Gynecology 04/15/24 Shanita Albright CNM [address] [place] [address] [place] [address] Obstetrics 04/15/24 documented as of this encounter Additional Source Comments The information contained in this document represents components of the legal health record. It is not the complete legal health record.[facility]
== END 2025-07-29 16:28 | disposition home or self-care (01) ==
LOC: HO.US 16:27
PROVIDERS: PCP Internal Medicine; Visit Provider Internal Medicine
DX: R10.2 Pelvic and perineal pain (principal)
CPT/HCPCS: 76830; 76856

== ENCOUNTER → 2025-07-29 16:30 | Outpatient (BNV) | payer MEDICARE, MEDICAID, SELFPAY | PROVIDERS: PCP Internal Medicine; Visit Provider Radiology Diagnostic Radiology | DX: R10.2 Pelvic and perineal pain (principal) | CPT/HCPCS: 76830; 76856 ==

== ENCOUNTER 2025-09-30 11:06 | Outpatient (REF) | payer MEDICARE, MEDICAID, SELFPAY ==
--- NOTE | ~2025-09-30 | XR_ITS ---
EXAMINATION: XR KNEE, LEFT CLINICAL INFORMATION: M25.562 - Pain in left knee COMPARISON: X-ray 10/19/2013 TECHNIQUE: Three views of the left knee. FINDINGS: No visible acute fracture, dislocation or suspicious bony lesion. Small medial compartment marginal spurring. Tiny marginal patellar spurs. No significant effusion. No abnormal soft tissue calcification. XR/XR knee LT 2V IMPRESSION: No acute findings. Mild degenerative changes. Electronically signed by: Harvey Akhtar MD 09/30/2025 03:54 PM EST
--- NOTE | ~2025-09-30 | XR_ITS ---
EXAMINATION: XR CHEST 2 VIEWS HISTORY: R07.9 - Chest pain, unspecified COMPARISON: Comparison is made with the prior examination dated 10/31/2017. FINDINGS: PA and lateral views of the chest are submitted. There are low lung volumes. There is scarring at the left lung base. The right lung is clear. There is no pleural effusion, pneumothorax, or pulmonary vascular congestion. The heart is normal in size. There is degenerative disc disease of the spine. XR/XR chest 2V IMPRESSION: Low lung volumes. No acute cardiopulmonary abnormality. Electronically signed by: Juvenal Mccain MD 09/30/2025 01:20 PM [facility]
[2025-09-30 12:58] LABS: MANUAL DIFF FLAG NO
[2025-09-30 14:21] LABS: Hematocrit 38.8 % (37.0-47.0); Hemoglobin 12.7 g/dl (12.0-16.0); Imm Gran Abs Auto 0.06 X10*3/uL (0.00-0.03); Imm Gran Pct Auto 0.6 % (0.0-0.4); Lymphocytes Absolute Auto 1.7 X10*3/uL (1.2-4.9); Mean Corpuscular HGB Conc 32.7 g/dl (31.0-35.0); Mean Corpuscular Hemoglobin 29.5 pg (27.0-33.0); Mean Corpuscular Volume 90.0 fL (80.0-98.0); NRBC Abs Auto 0.000 X10*3/uL (0.0-0.012); NRBC Pct Auto 0.0 /100WBC (0.0-0.2); Platelet Count 284 X10*3/uL (160-400); Red Blood Count 4.31 X10*6/uL (4.20-5.50); White Blood Count 9.5 X10*3/uL (4.8-10.8)
[2025-09-30 14:50] LABS: Cholesterol 245 mg/dL (<200); HDL Cholesterol 65 mg/dL (>40); Triglycerides 176 mg/dL (<150)
[2025-09-30 14:52] LABS: Troponin-I High Sensitivity < 2.7 ng/L (<3.5-17.0)
[2025-09-30 14:58] LABS: Reflex LDLD? No
== END 2025-09-30 11:07 | disposition home or self-care (01) ==
LOC: HO.XRAY 11:06
PROVIDERS: PCP Internal Medicine; Visit Provider Student in an Organized Health Care Education/Training Program
DX: E66.01 Morbid (severe) obesity due to excess calories (principal); M79.7 Fibromyalgia; G47.33 Obstructive sleep apnea (adult) (pediatric); I10 Essential (primary) hypertension; E66.812 Obesity, class 2; R07.9 Chest pain, unspecified; M25.562 Pain in left knee; G89.29 Other chronic pain; Z68.41 Body mass index [BMI] 40.0-44.9, adult
CPT/HCPCS: 36415; 71046; 73560; 80061; 84484; 85025; 86141; 96127; 99212

== ENCOUNTER → 2025-09-30 12:59 | Outpatient (BNV) | payer MEDICARE, MEDICAID, SELFPAY | PROVIDERS: PCP Internal Medicine; Visit Provider Radiology Diagnostic Radiology | DX: J98.4 Other disorders of lung (principal); M17.12 Unilateral primary osteoarthritis, left knee | CPT/HCPCS: 71046 ==